=== PATIENT | male | born 1960 | race Caucasian/White ===

== ENCOUNTER 2019-03-07 10:33 | Emergency (ER) | payer OTHER, SELFPAY ==
--- NOTE | 2019-03-07 10:35 | W.ED.GENAD ---
Discharge Plan Disposition Patient Disposition: HOME Condition: Fair Discharge Details Chief Complaint: Orthopedic Clinical Impression: Multiple closed fractures of finger, Numbness and tingling in left hand Primary Care Provider: Elieser Bush ED Provider: Mckenzie Quinonez Home Meds and New Rx's Prescriptions: New hydrocodone-acetaminophen [Vicodin] 5-300 mg tablet 1 tab PO Q6H PRN (Reason: pain) Qty: 10 RF: 0 Continued citalopram [Celexa] 20 MG tablet 20 mg PO DAILY Qty: 90 RF: 4 nicotine (polacrilex) [Nicorette] 2 MG gum 2 mg PO Q2H PRN Qty: 100 RF: 6 sildenafil [Viagra] 100 MG tablet 50 mg PO PRN Qty: 3 RF: 12 tamsulosin [Flomax] 0.4 MG capsule 0.8 mg PO HS Qty: 180 RF: 3 lisinopril-hydrochlorothiazide 20-12.5 mg tablet 1 tab PO DAILY Qty: 90 RF: 3 prednisone 10 MG tablet 10 mg PO DAILY Qty: 42 RF: 0 hydroxyzine HCl 25 MG tablet 25 mg PO HS Qty: 10 RF: 0 betamethasone valerate 45 GM cream 45 gm Topical BID Qty: 1 RF: 0 No Action amlodipine 5 mg tablet 5 mg PO DAILY Qty: 90 RF: 4 Discharge Instructions Instructions: Hand Fracture (ED) Additional Instructions: Encourage rest, ice, elevation. Tylenol and/or Motrin as needed for discomfort. May use the Vicodin as prescribed but please only take as prescribed. Take care to not exceed 3,000mg of Tylenol daily as this is in the Vicodin. You may not drive while taking this medication. Keep splint on until evaluated by orthopedics. Orthopedics would like to follow-up with you on Sunday, please call the office at 8:00 Sunday morning to schedule appointment. If you are unable to be evaluated by them, please return emergency department. If you develop increased pain, fever/chills or other new/worsening symptoms please seek care urgently once again. Referrals: Jaswant Rosen MD [ [facility] STAFF PHYSICIAN] - Discharge Data Discharge Date/Time-TO BE ENTERED AT DEPARTURE: 03/07/19 13:20 Medical Decision Making Patient is a 58-year-old [id number] male presents today with chief complaint of left hand pain. Patient reports yesterday, while at work, the piece of steel fell on his left hand crushing it. Suffered injuries primarily to the middle, ring and small finger. Was seen at [facility] at which time he was diagnosed with multiple fractures. He describes reductions of these fractures. He is currently splinted. Has been elevating and icing. States that the ring finger had been cool and they advised that he return to the emergency department if this did not improve overnight. On today's exam, patient does have good capillary refill of the concerning digit. Two-point is intact except for on the ulnar side of the ring finger where he has no sensation reported. He does have diffuse swelling, worse along the ulnar side. Swelling is circumferential at the base and middle of the third, fourth and fifth digits. This patient reports that he had multiple reductions yesterday, range of motion was not assessed. Plan for imaging. Patient does wish to follow-up with orthopedics here as he lives locally. X-ray reviewed by radiologist. Patient has a 5 nondisplaced fractures. This includes the proximal phalanx of the third, fourth and fifth digits, fifth metacarpal, middle phalanx of the middle finger. Consulted with Dr. Rosen regarding the cool digit, he will come to evaluate the patient. Dr. Rosen evaluated the patient. Advised that the sandwich like a boxer splint was appropriate for the patient. He does not feel that he needs immediate intervention and will closely monitor the patient. However, he did recommend that I follow-up with hand once again at [facility] however the patient was seen yesterday. Spoke with the orthopedic physician who was on-call, this the same physician that evaluated the patient yesterday. He reports that overall this sounds to be improving from yesterday. Yesterday, the patient was insensate on both sides of the digit. He did recommend trying to achieve plaque on this and a Doppler of the finger. Feels that he is appropriate to be followed up here emergently as he is improving. I was able to obtain a plaque on his finger, something that they were reported to not be able to do yesterday. This again indicates that the patient's trauma is improving. I attempted to obtain Doppler. However, this was difficult secondary to the swelling and the numerous fractures. Was having difficulty getting the probe into the lateral aspect of the fingers. I was able to get Doppler along the radial side along the proximal phalanx but otherwise, exam was limited secondary to pain and instability of fractures. Discussed recommendations with the patient. Encourage rest, ice, elevation. He will continue with Tylenol and ibuprofen as needed for discomfort. He is requesting something stronger for pain, particularly for nighttime. He reports that he is done well with Vicodin historically. Discussed tylenol dosing. Discussed safe usage of narcotics. He was given strict return precautions. Capillary refill intact after application of splint. He is comfortable in this. All of his questions and concern were addressed, he is in agreement iwth this plan. Will f/u with orthopedics on Sunday. HPI General Mode of arrival: ambulatory. Date/Time Provider Initiated Documentation: 03/07/19 10:33. Limitations to Documentation: no limitations. Information obtained by: patient and RN notes reviewed. History of Present Illness 58 year old M presents to the emergency department with the chief complaint of crush injury to left hand, described as severe, Quality is described as aching, and is localized to the left and upper extremity. Patient reports no radiation. Patient started experiencing this day(s) (1) and it has been constant. No relieving factors improve symptom(s), No exacerbating factors reported . Patient notes no other symptoms.. Patient did receive the following treatments prior to arrival, NSAID and splint Related Data Home Medications Medication Instructions Recorded Confirmed citalopram [Celexa] 20 mg PO DAILY #90 tab-cap 07/27/15 nicotine (polacrilex) [Nicorette] 2 mg PO Q2H PRN #100 piece of gum 01/05/16 sildenafil [Viagra] 50 mg PO PRN #3 tab 03/27/17 tamsulosin [Flomax] 0.8 mg PO HS #180 tab-cap 06/13/17 betamethasone valerate 45 gm TOPICAL BID #1 tube 09/15/17 hydroxyzine HCl 25 mg PO HS #10 tab 09/15/17 prednisone 10 mg PO DAILY #42 tablet 09/15/17 lisinopril 20 1 tab PO DAILY #90 tab-cap 02/28/19 mg-hydrochlorothiazide 12.5 mg tablet hydrocodone-acetaminophen [Vicodin] 1 tab PO Q6H PRN #10 tab 03/07/19 amlodipine 5 mg tablet 5 mg PO DAILY #90 tab-cap 03/08/19 Previous Rx's Medication Instructions Recorded sildenafil [Viagra] 50 mg PO PRN #3 tab 03/27/17 tamsulosin [Flomax] 0.8 mg PO HS #180 tab-cap 06/13/17 betamethasone valerate 45 gm TOPICAL BID #1 tube 09/15/17 hydroxyzine HCl 25 mg PO HS #10 tab 09/15/17 prednisone 10 mg PO DAILY #42 tablet 09/15/17 lisinopril 20 1 tab PO DAILY #90 tab-cap 02/28/19 mg-hydrochlorothiazide 12.5 mg tablet hydrocodone-acetaminophen [Vicodin] 1 tab PO Q6H PRN #10 tab 03/07/19 amlodipine 5 mg tablet 5 mg PO DAILY #90 tab-cap 03/08/19 Allergies Allergy/AdvReac Type Severity Reaction Status Date / Time No Known Allergies Allergy Unverified 09/15/17 09:04 Review of Systems Constitutional Reports as per HPI, Denies chills, Denies fever(s), Denies headache(s) and Denies weakness ENT Denies headache(s) Cardiovascular Reports as per HPI Respiratory Reports as per HPI and Denies cough Musculoskeletal Reports as per HPI, Reports numbness (primarily to ring finger) and Reports tingling Integumentary/Breasts Reports as per HPI, Reports skin swelling, Denies wounds and Reports other (ecchymosis to middling, ring and small left digits, worse proximally) Neurologic Reports as per HPI, Denies headache(s), Reports numbness (primarily to ring finger), Reports tingling and Denies weakness [facility] Surgical History KNEE REPAIR Social History Smoking/Tobacco Use Status: Never Alcohol Intake: current Alcohol Intake frequency: holidays/special occasions only Drug use: Never Substance use type: does not use Do you feel safe in your relationship?: Yes Exam Const General: cooperative, healthy appearing, comfortable, no acute distress, well developed and well groomed Nutritional Appearance: average body habitus and well nourished Orientation: alert and awake Resp Effort & Inspection: normal respiratory effort, able to speak in complete sentences and no respiratory distress Cardio Rate: regular rate Rhythm: regular rhythm Skin General skin exam: ecchymosis (circumfrencially to middle and ring left fingers) Neuro General: alert and awake Cognition: normal cognition Speech: speech normal Gait: normal gait Motor: muscle tone normal throughout Sensory Exam: abnormal double simultaneous stimulation (normal except for ulnar side of ring finger, no sensation here) Extrem Left upper extremity: normal capillary refill, cyanosis (ring finger cool to touch, appears more ecchymotic than cyanotic) and hand Details: abnormal to inspection (dorsal swelling, maximal along the ulnar half of the dorsal aspect of hand), normal capillary refill (despite ring finger being cool, normal cap refill), neurosensory exam abnormal (patient has no sensation with 2 point along ulnar side ring finger), tenderness Location: of the dorsal hand, of the 3rd digit, of the 4th digit and of the 5th digit, vascular exam and swelling Location: of the dorsal hand, of the palm, of the 3rd digit, of the 4th digit and of the 5th digit; ROM of fingers abnormal (patient unable to move digits at thsi time); abnormal to inspection and ROM limited Psych Appearance: grossly normal and well kempt Mental Status: mental status grossly normal Speech and Movement: speech and movement normal Procedures Orthopedic Splinting/Casting Injury #1: Side: left Upper Extremity Injury Location: wrist, hand and finger Upper Extremity Immobilizer: ulnar gutter (anterior/posterior to include fingers, wrist, forearm) Additional Comments: neurovascularly intact after application
[2019-03-07 10:38] VITALS: BP 170/66; PULSE 74; RESP 20; TEMP 36.5; O2SAT 97
--- NOTE | 2019-03-07 10:46 | DI.RAD_ITS ---
SYMPTOM/DIAGNOSIS: CRUSH INJURY, PAIN LEFT HAND: Three views. No priors. There are nondisplaced comminuted fractures involving the proximal phalanges of the middle, ring and little fingers. There is also a nondisplaced fracture involving the distal metaphysis of the left fifth metacarpal. There also is a comminuted intra-articular fracture involving the middle phalanx of the left middle finger. There is soft tissue swelling of the entire hand noted. No radiopaque foreign bodies are present. IMPRESSION: Fractures involving the left fifth metacarpal, the proximal phalanges of the middle, ring and little fingers and the middle phalanx of the left middle finger. The fractures appear nondisplaced. The findings were discussed with Mckenzie Quinonez of the ER on the date of the examination.
[2019-03-07] MEDS: Acetaminophen 325 MG TAB 650 MG PO (11:00)
--- NOTE | 2019-03-11 06:13 | W.ORTHOCONSU ---
Date of service: 03/07/19 Time of Service: 13:13 History of Present Illness Chief Complaint: Right hand crush injury Narrative: Antwan is a 58-year-old who suffered a crush injury yesterday, March 06, while at work. A large metal pipe landed directly onto his right hand. He was seen initially at the [facility]. He reports that some reduction was performed although is unclear what was done. He had fractures noted of the fifth metacarpal and index middle and ring fingers. He had substantial swelling. He was placed into a splint. He presents today to the emergency room because he feels that the ring finger primarily, and the middle finger to a lesser extent, or cooler than they were. He has had numbness of the ring finger all along with some dysesthesias of the middle finger. This has not changed drastically. He has been keeping it elevated. His pain has been controlled. Consults Consult date: 03/07/19 Requesting physician: Mckenzie Quinonez Assessment and Plan (1) Crushing injury of left hand and finger: Current visit: No Status: Acute Antwan is a 58-year-old suffered a crushing injury to his left hand while at work. A large metal device landed on the hand causing fractures of 4 different digits, 5 bones. He does have a concerning exam for some decreased blood flow into the ring finger. However, there is blood flow. Also, given the duration of time since the injury would be unlikely that there was no blood flow without signs of necrosis, which there are not. The numbness is likely due to the crush injury but without a penetrating trauma this needs no exploration. Therefore, I have placed him into a well-padded splint. We will see him in close follow-up. Qualifiers: Encounter type: subsequent encounter Qualified Code(s): S67.22XD - Crushing injury of left hand, subsequent encounter Review of Systems Review of Systems All systems reviewed & are unremarkable except as noted in HPI and below PFSH Medical History Hypertension (Chronic) Surgical History KNEE REPAIR left knee reconstruction Social History Smoking/Tobacco Use Status: Never Alcohol Intake: current Alcohol Intake frequency: holidays/special occasions only Drug use: Never Substance use type: does not use Do you feel safe in your relationship?: Yes Exam Narrative Exam Narrative: Evaluation of the left hand shows significant swelling. The fingers are all swollen, less over the thumb. The palm is soft and compressible. All digits appear to be well perfused. The ring finger is more red than the other digits and cap refill is about 5 seconds compared to the other. Motion was not tested. Decreased sensation over the ring finger and middle finger. This is most dense over the ring finger. Results Last Vital Signs Temp 36.5 C 03/07/19 10:38 Pulse 74 03/07/19 10:38 Resp 20 03/07/19 10:38 BP 170/66 H 03/07/19 10:38 Pulse Ox 97 03/07/19 10:38
== END 2019-03-07 13:20 | disposition home or self-care (01) ==
PROVIDERS: Emergency Provider Physician Assistant; PCP Emergency Medicine
DX: S67.22XA Crushing injury of left hand, initial encounter (principal); S62.613A Displaced fracture of proximal phalanx of left middle finger, initial encounter for closed fracture; S62.615A Displaced fracture of proximal phalanx of left ring finger, initial encounter for closed fracture; S62.617A Displaced fracture of proximal phalanx of left little finger, initial encounter for closed fracture; S62.623A Displaced fracture of middle phalanx of left middle finger, initial encounter for closed fracture; S62.397A Other fracture of fifth metacarpal bone, left hand, initial encounter for closed fracture; R20.2 Paresthesia of skin; W22.8XXA Striking against or struck by other objects, initial encounter
CPT/HCPCS: 26600; 26720; 99253; 73130; L3650

== ENCOUNTER 2019-03-10 11:59 | Outpatient (CLI) | payer OTHER, SELFPAY ==
--- NOTE | 2019-03-10 11:49 | DI.RAD_ITS ---
SYMPTOM/DIAGNOSIS: MULTIPLE FINGER FRACTURES LEFT HAND: Comparison is made with 07 March 2019. There has been no change in the alignment of the previously noted fractures the 5th metacarpal, 3rd through 5th proximal phalanges and fracture of the middle phalanx of the 3rd finger.
== END 2019-03-10 12:19 ==
PROVIDERS: PCP Emergency Medicine; Visit Provider Student in an Organized Health Care Education/Training Program
DX: S62.337D Displaced fracture of neck of fifth metacarpal bone, left hand, subsequent encounter for fracture with routine healing (principal); S62.641D Nondisplaced fracture of proximal phalanx of left index finger, subsequent encounter for fracture with routine healing; S62.643D Nondisplaced fracture of proximal phalanx of left middle finger, subsequent encounter for fracture with routine healing; S62.653D Nondisplaced fracture of middle phalanx of left middle finger, subsequent encounter for fracture with routine healing
CPT/HCPCS: 73130

== ENCOUNTER 2019-03-28 11:15 | Day surgery (SDC) | payer OTHER, SELFPAY ==
[2019-03-28 11:28] VITALS: BP 152/76; PULSE 71; RESP 18; TEMP 37; O2SAT 97
[2019-03-28] MEDS: Lactated Ringers 1,000 ML 80 ML IV (12:08)
[2019-03-28] MEDS: ceFAZolin 2 GM/50 ML BAG IVPB (12:25)
[2019-03-28] MEDS: Sodium Bicarbonate 50 MEQ/50 ML VIAL (12:35)
--- NOTE | 2019-03-28 14:02 | PDOC.DSDIS_ITS ---
Discharge Plan Disposition Patient Disposition: HOME Condition: Good Discharge Details Reason For Visit: LRF Flexor Tendon Rupture Attending Provider: Jaswant oRsen Primary Care Provider: Elieser Bush Home Meds and New Rx's Prescriptions: Continued lisinopril-hydrochlorothiazide 20-12.5 mg tablet 1 tab PO DAILY Qty: 90 RF: 3 amlodipine 5 mg tablet 5 mg PO DAILY Qty: 90 RF: 4 hydrocodone-acetaminophen [Vicodin] 5-300 mg tablet 1 tab PO Q6H PRN (Reason: pain) Qty: 5 RF: 0 Discharge Instructions Additional Instructions: Activity: You should keep the hand elevated as much as possible for the first few days. No active flexion of the ring finger. You may perform light activities with the splint in place. Keep splint on. Dressing/Cast: Your splint should stay in place at all times. Do NOT get it wet. You may loosen the GUANAKO wrap if you feel it is too tight and then rewrap more loosely. Medications: - You should take Tylenol and Ibuprofen for baseline pain control. - You have Hydrocodone for breakthrough pain. - You may apply ice Follow-up: 7 days, Sunday Referrals: Jaswant Rosen MD [ [facility] STAFF PHYSICIAN] - Equipment/Supplies: Splint Activity:: Elevate Remove Dressings/Wound Care:: Do Not Remove Shower/Bathe:: Cover Diet:: As Tolerated Discharge Orders Discharge Orders: Discharge Order (Routine); Ordered 03/28/19 Ordered By: Jaswant Rosen DS: Diagnosis Discharge Diagnosis (1) Crushing injury of left hand and finger: Status: Acute (2) Rupture of flexor tendon of left hand: Status: Acute
--- NOTE | 2019-03-28 16:48 | ROE_ITS ---
DATE OF SURGERY: March 28, 2019 PREOPERATIVE DIAGNOSIS: Multiple hand fractures and rupture of left ringer finger FDP tendon. POSTOPERATIVE DIAGNOSIS: Same. SURGERY: Zone 2 flexor tendon repair of the left ring finger flexor digitorum profundus tendon. SURGEON: Jaswant Rosen M.D. ASSISTING SURGEON: Marvin Goldman M.D. ESTIMATED BLOOD LOSS: Minimal. ANESTHESIA: Local. COMPLICATIONS: None. DISPOSITION: The patient was taken back to the same-day surgery in a stable condition. INDICATION FOR PROCEDURE: Choco is a 58-year-old who had a large metal piece of machinery land on his left hand. He was seen initially at [place]. He was diagnosed with multiple hand fractures, including the proximal phalanx of the little finger, proximal phalanx of the ring finger, proximal an d middle phalanges of the long finger, and the fifth metacarpal neck. He was placed into a splint. I saw him in consultation over a week out from the injury, where there was noted to be some resting e xtension of the ring finger DIP joint. This prompted an MRI which revealed complete rupture of the F DP tendon. Given this injury, I did recommend urgent repair of the flexor tendon. The case was disc ussed with hand specialists, who were unavailable to help with the case, so therefore I offered fixat ion here at [facility]. I reviewed the risks of the procedure to include bleeding, infection, pain, stiffn ess, damage to nerves and vessels, damage to muscles and tendons, re-rupture, adhesion formation, nee d for repeat procedures. Despite these risks, he elected to proceed. PROCEDURE DESCRIPTION: Antwan was greeted in the preoperative holding area. His identity was confirme d and the correct side was identified and marked. He was taken back to the operating room and placed in the supine position. The splint from the left hand was removed. A time-out was performed for sa fe surgery. The left palm was first prepped with ChloraPrep and prior to doing the final draping an initial anesthetic was applied to the left hand. Approximately 10 cc's of buffered 1% Lidocaine with epinephrine was injected into the palm just distal to the transverse carpal ligament surrounding the fourth ray. This was done superficially and then deeper to try to cover the digital nerves. While this was setting up, I then performed preoperative x-rays. Each digit which had fractures was identi fied. Some passive motion was obtained to make sure that the fractures were stable and without any g ross motion. The base of the proximal phalanx of the little finger did have some angulation, but the joint was otherwise congruent. All other fractures were manipulated and showed no gross motion and therefore no fracture fixation was performed. The left hand was then prepped with ChloraPrep and draped in a standard fashion. Approximately 5 cc' s of the buffered 1% Lidocaine with epinephrine was injected into the ring finger centrally. A Lara-type incision was then made overlying the finger starting at the level of the DIP flexion cr ease and extending down to the MCP flexion crease and onto the palm. This was taken sharply through the skin and then elevated with tenotomy scissors. The skin flaps were tied out of the way with a #4 -0 Nylon. We had excellent visualization of the flexor tendon sheath. The A-2 birgit was identified . The distal stump of the flexor tendon was seen just distal to the proximal edge of the A-2 birgit. The sheath was opened and the chiasm was empty. The A-1 birgit was released and at the very proxim al edge of the A-1 birgit the proximal stump was identified. A small epitendinous suture was placed in the distal tendon stump for mobilization. A similar type stitch was placed in the proximal stump for mobilization and this showed that the level of the tear was right at the base of the A-2 birgit. It was then decided to remove one slip of the FDS tendon. The ulnar slip was removed. This allowed room for the FDP tendon and also made orientation easier. The tendon edges were then freshened. The tear was somewhat irregular and I did not want to remove t oo much tendon, so therefore just the very blunt roughened edges were removed. An epitendinous sutur e was placed between the two ends to reapproximate the ends. The tendons were held in a reduced posi tion with a 25 gauge needle through the pulleys and into the tendon. This #6-0 Nylon suture was plac ed deep over the back side of the tendon. Two throws were made in this location. This then had the tendon edges nicely approximated. Using a #3-0 Ethibond suture I then repaired the tendon with a fou r core suture technique using a locking cruciate-style suture. This was done with excellent approxim ation of the tendon edges. It was tied within the avulsed section and the knot was buried. The epit endinous suture was continued in a running fashion around the entirety of the torn tendon. This smoo thed the tendon edge. There was still some bulk in this area. The patient was able to actively flex the digit which showed no tendon gapping. This was repeated mu ltiple times to ensure there was no gapping of the tendon. With the finger maximally extended with t he wrist in an extended position, the repair site impinged on the proximal edge of the A-2 birgit. T herefore I released approximately 3 mm of the A-2 birgit, representing less than 20% of the A-2 pulle y. This allowed the repair site to advance into a fully extended position. The wound was then thoro ughly irrigated. Any excess tendon which was present was debulked. The skin was then closed and freddie pproximated with a #4-0 Nylon. The wound was dressed with Xeroform, 4x4's, fluff, Webril, and a dors al-blocking splint. At the end of the case all counts were correct. He tolerated the procedure wel l and went back to the same-day surgery area in a stable condition. Dr. Goldman's involvement was necessary given the complexity of this case in the setting of a ruptured flexor tendon in a delayed fashion with multiple surrounding fractures.
== END 2019-03-28 14:40 | disposition home or self-care (01) ==
PROVIDERS: PCP Emergency Medicine; Visit Provider Student in an Organized Health Care Education/Training Program
PROC: (CPT 26370; principal; 2019-03-28 12:30)
DX: S67.22XA Crushing injury of left hand, initial encounter (principal); S66.115A Strain of flexor muscle, fascia and tendon of left ring finger at wrist and hand level, initial encounter; W31.9XXA Contact with unspecified machinery, initial encounter; Y99.0 Civilian activity done for income or pay; S62.617A Displaced fracture of proximal phalanx of left little finger, initial encounter for closed fracture; S62.615A Displaced fracture of proximal phalanx of left ring finger, initial encounter for closed fracture; S62.613A Displaced fracture of proximal phalanx of left middle finger, initial encounter for closed fracture; S62.623A Displaced fracture of middle phalanx of left middle finger, initial encounter for closed fracture; S62.337A Displaced fracture of neck of fifth metacarpal bone, left hand, initial encounter for closed fracture
CPT/HCPCS: 26370; J0690

== ENCOUNTER 2019-04-04 11:50 | Outpatient (CLI) | payer OTHER, SELFPAY ==
--- NOTE | 2019-04-04 10:39 | DI.RAD_ITS ---
EXAM: XR HAND LT LIMITED INDICATION: left hand injury involving several fractures. COMPARISON: XR hand LT complete from 03/10/2019 TECHNIQUE: 2D digital imaging was performed. FINDINGS: There are nondisplaced transverse fractures involving the proximal metaphysis of the proximal phalanx of the little and ring finger. In addition there is an apparent nondisplaced fracture involving the shaft and distal metaphysis of the phalanx of the middle finger. In addition there is a mildly displa eladia comminuted fracture involving the diaphysis and the proximal diaphysis of the proximal phalanx of the 5th finger and a mildly displaced fracture involving the distal metaphysis of the fifth finger. There is no evidence of a dislocation. There is prominent soft tissue swelling of the distal hand an d ring and fifth fingers.
== END 2019-04-04 12:10 ==
PROVIDERS: PCP Emergency Medicine; Visit Provider Physician Assistant
DX: S67.22XD Crushing injury of left hand, subsequent encounter (principal); S62.645D Nondisplaced fracture of proximal phalanx of left ring finger, subsequent encounter for fracture with routine healing; S62.617D Displaced fracture of proximal phalanx of left little finger, subsequent encounter for fracture with routine healing; S62.643D Nondisplaced fracture of proximal phalanx of left middle finger, subsequent encounter for fracture with routine healing
CPT/HCPCS: 73120

== ENCOUNTER 2019-04-28 11:52 | Outpatient (CLI) | payer OTHER, SELFPAY ==
--- NOTE | 2019-04-28 09:13 | DI.RAD_ITS ---
EXAM: XR HAND LT COMPLETE INDICATION: Left hand crush injury, multiple fractures. COMPARISON: XR HAND LT LIMITED from 04/04/2019 TECHNIQUE: 2D digital imaging was performed. FINDINGS: Three views were obtained and show healing fractures 5th metacarpal as well as phalanges of the middl e ring and little fingers. No gross interval change in alignment of the fracture fragments in compar parker with the previous examination of April 04. IMPRESSION:
== END 2019-04-28 12:12 ==
PROVIDERS: PCP Emergency Medicine; Visit Provider Student in an Organized Health Care Education/Training Program
DX: S67.22XD Crushing injury of left hand, subsequent encounter (principal); S62.641D Nondisplaced fracture of proximal phalanx of left index finger, subsequent encounter for fracture with routine healing; S62.617D Displaced fracture of proximal phalanx of left little finger, subsequent encounter for fracture with routine healing; S62.643D Nondisplaced fracture of proximal phalanx of left middle finger, subsequent encounter for fracture with routine healing; S62.337D Displaced fracture of neck of fifth metacarpal bone, left hand, subsequent encounter for fracture with routine healing
CPT/HCPCS: 73130

== ENCOUNTER 2019-11-03 11:40 | Outpatient (CLI) | payer OTHER, SELFPAY ==
--- NOTE | 2019-11-03 13:00 | DI.RAD_ITS ---
EXAM: XR CHEST 2V PA LATERAL CLINICAL HISTORY: Chronic SOB, cough, r05 TECHNIQUE: 2D digital imaging was performed. COMPARISON: RIGHT RIBS TO INCLUDE CXR from 10/19/2010 FINDINGS: The cardiac and mediastinal contours have a normal appearance. The lungs are mildly hyperinflated particularly at the lung bases. The lungs appear clear. No infiltrate, effusion or pulmonary edema is seen. IMPRESSION: Hyperinflation, otherwise negative.
== END 2019-11-03 12:00 ==
PROVIDERS: PCP Emergency Medicine; Visit Provider Nurse Practitioner Family
DX: R06.02 Shortness of breath (principal); R05 Cough
CPT/HCPCS: 71046

== ENCOUNTER 2020-04-21 09:50 | Outpatient (REF) | payer MEDICARE, SELFPAY ==
[2020-04-21 13:09] LABS: Anion Gap 6.8 mmol/L (3-11); BUN 15 mg/dL (7-18); CO2 26.2 mmol/L (21.0-32.0); CREATININE 0.92 mg/dL (0.70-1.30); Calcium 9.8 mg/dL (8.5-10.1); Chloride 92 mmol/L (98-107); Glucose 100 mg/dL (74-106); Potassium 5.2 mmol/L (3.5-5.1); Sodium 125 mmol/L (136-145)
[2020-04-22 09:41] LABS: PSA, Screening 0.7 ng/mL (0.0-4.5)
== END 2020-04-21 10:10 ==
LOC: LBN 09:50
PROVIDERS: PCP Emergency Medicine; Visit Provider Emergency Medicine
DX: I10 Essential (primary) hypertension (principal); Z12.5 Encounter for screening for malignant neoplasm of prostate
CPT/HCPCS: 80048; 84153

== ENCOUNTER 2020-04-29 02:44 | Outpatient (CLI) | payer MEDICARE, SELFPAY ==
[2020-04-29 10:59] LABS: Anion Gap 7.8 mmol/L (3-11); BUN 15 mg/dL (7-18); CO2 28.2 mmol/L (21.0-32.0); CREATININE 0.87 mg/dL (0.70-1.30); Calcium 9.3 mg/dL (8.5-10.1); Chloride 98 mmol/L (98-107); Glucose 93 mg/dL (74-106); Potassium 4.9 mmol/L (3.5-5.1); Sodium 134 mmol/L (136-145)
== END 2020-04-29 03:04 ==
PROVIDERS: PCP Emergency Medicine; Visit Provider Emergency Medicine
DX: I10 Essential (primary) hypertension (principal); E78.1 Pure hyperglyceridemia
CPT/HCPCS: 36415; 80048

== ENCOUNTER → 2020-06-17 09:30 | Outpatient (BNVA) | payer MEDICARE, SELFPAY | PROVIDERS: PCP Emergency Medicine; Referring Provider Emergency Medicine; Visit Provider Physical Therapy Assistant | DX: Z12.11 Encounter for screening for malignant neoplasm of colon (principal) ==

== ENCOUNTER 2020-06-28 03:05 | Outpatient (CLI) | payer MEDICARE, SELFPAY ==
[2020-06-29 21:00] LABS: COVID-19 RT-PCR UVMMC Result Negative (Negative)
== END 2020-06-28 03:25 ==
PROVIDERS: PCP Emergency Medicine; Visit Provider Surgery
DX: Z11.59 Encounter for screening for other viral diseases (principal); Z01.818 Encounter for other preprocedural examination
CPT/HCPCS: U0003

== ENCOUNTER 2020-07-01 08:55 | Day surgery (SDC) | payer MEDICARE, SELFPAY ==
[2020-07-01 09:10] VITALS: BP 155/74; PULSE 68; RESP 18; TEMP 36.9; O2SAT 96
[2020-07-01] MEDS: Lactated Ringers 1,000 ML 80 ML IV (09:38)
--- NOTE | 2020-07-01 11:29 | W.PM.DSUDISC ---
Discharge Plan Disposition Patient Disposition: HOME Condition: Good Discharge Details Reason For Visit: colon scope Attending Provider: Alessandra Francois Primary Care Provider: Elieser Bush Home Meds and New Rx's Prescriptions: Continued (DME) Aerochamber MV Spacer See Rx Instructions .ROUTE .MEDSUPPLY Qty: 1 RF: 0 albuterol sulfate 90 mcg/actuation HFA aerosol inhaler 2 puff inhalation Q6H PRNRF: 0 amlodipine 5 mg tablet 5 mg PO DAILY Qty: 90 RF: 4 lisinopril 20 mg tablet 20 mg PO DAILY Qty: 90 RF: 3 Discontinued polyethylene glycol 3350 17 gram/dose powder 238 g PO ONCE Qty: 238 RF: 0 bisacodyl [Dulcolax (bisacodyl)] 5 mg tablet,delayed release (DR/EC) 5 mg PO ONCE Qty: 4 RF: 0 Discharge Instructions Additional Instructions: Findings: Follow up: Please call if you develop: fevers >101.5 Nausea or Vomiting Abdominal pain that is not transient DAY SURGERY UNIT POST COLONOSCOPY INSTRUCTIONS 1. Because there will be medication in your system for the next 24 hours, you may feel a little sleepy. Your coordination will be affected. Therefore: a. Do not drive or operate dangerous equipment for 24 hours. b. Do not drink alcohol beverages for 24 hours (not even beer). c. Plan to go home and rest for the day. 2. Generally there are no restrictions on your activity after a day or so has gone by, but you may feel a bit fatigued for a few days. 3 After you arrive home you may have a light meal and return to a normal diet as you can tolerate it without feeling sick to your stomach. 4. After surgery, you may feel pain or discomfort. This should be only transient, but if it persists please contact your doctor. 5. If there are any questions regarding the findings of your procedure, please feel free to contact your doctor. 6. If you are unable to contact your doctor with a problem, contact the hospital at [phone]. 7. Continue all your regular medications unless directed otherwise. I understand the above instructions and have no questions. Signature of Patient or Responsible Adult Escort Date/Time Name of Responsible Adult Escort Signature of Nurse Date/Time Activity:: No lifting over 20 pounds or strenuous activity x24 hours Diet:: Small light meals x24 hours Discharge Orders Discharge Orders: Discharge Order (Routine); Ordered 07/01/20 Ordered By: Alessandra Francois DS: Diagnosis Discharge Diagnosis (1) Colon cancer screening: Status: Acute
--- NOTE | 2020-07-01 11:31 | W.COLOREPORT ---
Date of service: 07/01/20 Time of Service: 11:32 Colonoscopy Report Date of procedure: 07/01/20 Pre-op diagnosis general: crc scree Post-op diagnosis procedure note: same Surgeon: Alessandra Francois Anesthesia proc note operative: GETA Estimated blood loss (mL): 0 Pathology: none sent Complications: None Disposition: same day Prep: Miralax/Dulcolax Retraction Time: 10 Procedure Description: Findings:normal colon After informed consent was obtained the patient was taken to the procedure room and placed in a left decubitous position. Monitors were applied and a time out was done. The patients name, date of , procedure, allergies to medications and metal in their body was reviewed. The patient was then sedated. Once sedated and comfortable a rectal exam was done. External exam was normal. Internal exam revealed a normal sphincter tone and no palpable masses. The scope was then introduced and retrofelexed. no internal hemorrhoids were identified. The scope was then advanced to the cecum w/out difficulty. The TI and appendiceal orifice were identified. The prep wasgood. The scope was then slowly retracted over 10 minutes back into the rectum. no polyps/avm/diverticula. the mucosa is pink and healthy. The scope was removed and the patient was woken up and taken back to Same day surgery in stable condition. The patient tolerated the procedure well and there were no immediate complications. Follow up: The patient should follow up in [] years unless they develop changes in bowel habits or other new gastrointestinal complaints.
[2020-07-01 11:55] VITALS: BP 130/77; PULSE 63; RESP 18; TEMP 36.7; O2SAT 95
== END 2020-07-01 12:24 | disposition home or self-care (01) ==
PROVIDERS: PCP Emergency Medicine; Visit Provider Surgery
PROC: 0DJD8ZZ Inspection of Lower Intestinal Tract, Via Natural or Artificial Opening Endoscopic (ICD-10-PCS; CPT 45378; principal; 2020-07-01 10:15)
DX: Z12.11 Encounter for screening for malignant neoplasm of colon (principal)
CPT/HCPCS: G0121

== ENCOUNTER 2020-12-24 09:25 | Outpatient (REF) | payer SELFPAY ==
[2020-12-24 14:42] LABS: Anion Gap 7.3 mmol/L (3-11); BUN 14 mg/dL (7-18); CO2 25.7 mmol/L (21.0-32.0); CREATININE 0.8 mg/dL (0.70-1.30); Calcium 9.3 mg/dL (8.5-10.1); Calculated LDL 104 mg/dL (<100); Chloride 99 mmol/L (98-107); Cholesterol 191 mg/dL (<200); Glucose 124 mg/dL (74-106); HDL Cholesterol 45 mg/dL (40-60); Sodium 132 mmol/L (136-145); Triglyceride 214 mg/dL (<150)
== END 2020-12-24 09:26 | disposition home or self-care (01) ==
LOC: LBN 09:25
PROVIDERS: PCP Emergency Medicine; Visit Provider Emergency Medicine
DX: I10 Essential (primary) hypertension (principal)
CPT/HCPCS: 80048; 80061

== ENCOUNTER 2021-01-09 12:17 | Emergency (ER) | payer SELFPAY ==
--- NOTE | 2021-01-09 12:21 | ED.GENADUL_ITS ---
Discharge Plan Disposition Patient Disposition: HOME Condition: Stable Discharge Details Clinical Impression: Tick bite, Rash Primary Care Provider: Elieser Bush ED Provider: Eva Villegas Home Meds and New Rx's Prescriptions: New doxycycline hyclate 100 mg tablet 100 mg PO BID 14 Days Qty: 28 RF: 0 Continued (DME) Aerochamber MV Spacer See Rx Instructions .ROUTE .MEDSUPPLY Qty: 1 RF: 0 budesonide-formoterol [Symbicort] 160-4.5 mcg/actuation HFA aerosol inhaler 2 puff inhalation BID Qty: 10.2 RF: 6 albuterol sulfate 90 mcg/actuation HFA aerosol inhaler 2 puff inhalation Q6H PRNRF: 0 amlodipine 5 mg tablet 5 mg PO DAILY Qty: 90 RF: 4 lisinopril 20 mg tablet 20 mg PO DAILY Qty: 90 RF: 3 Discharge Instructions Instructions: Lyme Disease (ED), Tick Bite (ED) Additional Instructions: The redness surrounding your tick bite may be a local reaction, a superficial skin infection or an early sign of possible Lyme disease. Follow-up with your primary care doctor or call the emergency department for results of your tick and Lyme panel. You are being started on antibiotics that can cover for potential Lyme disease. Discussed with your primary care doctor how to proceed with treatment pending your tick and Lyme panel results. Keep wound clean and dry. Cover wound with bandage if risk of contamination. Otherwise you can keep the wo und open to air if resting at home to allow edges to dry and heal. Your prescription has been sent electronically to your pharmacy. Call the pharmacy to make sure your prescription is ready before pickup. Take the prescription as directed. Return to the emergency department with any worsening or new concerning symptoms such as fever, worsening pain, redness or swelling. Discharge Data Discharge Physician: Eva Villegas Medical Decision Making 60-year-old male presents with red rash around tick bite which was removed by his son this morning. He is unsure how long the tick was present but could be more than 36 hours. He states he thinks it was a dog tick and it was engorged. There is a crusted erosion at the site of tick bite with surrounding erythema and a questionable area of central clearing and a ring. This is quite faint, but considering the history, will cover with doxycycline. Tick and Lyme panel obtained here. Advised to follow-up with PCP for tick and Lyme panel results. Usual and customary return precautions given prior to discharge. Medical Records Medical records reviewed: Yes I reviewed the patient's medical records. HPI General Mode of arrival: ambulatory . Date/Time Provider Initiated Documentation: 01/09/21 12:18 . Limitations to Documentation: no limitations . Information obtained by: patient . HPI Narrative: Patient is a 60-year-old male who presents with a rash around the tick bite that was noticed this morning. Patient states he is unsure of when the tick attached to his skin but states it may have been there for a few days. He states his son removed the tick this morning and noticed redness around this area. Patient states he thinks it was a dog tick and not a deer. He states the tick was fully engorged with blood. He denies any fever, body aches or chills Related Data Home Medications Medication Instructions Recorded Confirmed inhalational spacing device #1 each 11/03/19 06/29/20 amlodipine 5 mg tablet 5 mg PO DAILY #90 tab-cap 03/03/20 07/01/20 lisinopril 20 mg tablet 20 mg PO DAILY #90 tab 04/21/20 01/09/21 albuterol sulfate 90 mcg/actuation 2 puff INHALATION Q6H PRN 06/17/20 07/01/20 aerosol inhaler budesonide-formoterol HFA 160 2 puff INHALATION BID #10.2 g 12/24/20 12/24/20 mcg-4.5 mcg/actuation aerosol inhaler doxycycline hyclate 100 mg PO BID 14 Days #28 tab 01/09/21 Previous Rx's Medication Instructions Recorded inhalational spacing device #1 each 11/03/19 amlodipine 5 mg tablet 5 mg PO DAILY #90 tab-cap 03/03/20 lisinopril 20 mg tablet 20 mg PO DAILY #90 tab 04/21/20 budesonide-formoterol HFA 160 2 puff INHALATION BID #10.2 g 12/24/20 mcg-4.5 mcg/actuation aerosol inhaler doxycycline hyclate 100 mg PO BID 14 Days #28 tab 01/09/21 Allergies Allergy/AdvReac Type Severity Reaction Status Date / Time No Known Allergies Allergy Unverified 12/24/20 08:29 General ETHEL: 3 Review of Systems All systems reviewed & are unremarkable except as noted in HPI and below Constitutional Constitutional: Reports as per HPI, Denies chills and Denies fever(s) Eyes Eyes: Denies blurry vision ENT Ears, Nose, Mouth, and Throat: Denies dizziness, Denies sore throat and Denies throat swelling Cardiovascular Cardiovascular: Denies chest pain and Denies dyspnea Respiratory Respiratory: Denies cough and Denies dyspnea Gastrointestinal Gastrointestinal: Denies abdominal pain, Denies diarrhea and Denies vomiting Genitourinary Genitourinary: Denies hematuria and Denies dysuria Musculoskeletal Musculoskeletal: Denies back pain and Denies numbness Integumentary/Breasts Skin/Breast: Reports lesions and Reports rash Neurologic Neurologic: Denies dizziness, Denies localized weakness and Denies numbness Allergic/Immunologic Allergic/Immunologic: Denies throat swelling PFS Medical History (Updated 01/09/21 @ 12:38 by Eva Villegas DO) BPH (benign prostatic hyperplasia) Colon cancer screening COPD (chronic obstructive pulmonary disease) Cough Essential hypertension Hyponatremia Loss of smell Loss of taste Traumatic brain injury Surgical History (Updated 07/30/20 @ 13:55 by Tootie Rodriguez RN) History of colonoscopy (~07/01/20) Hx of eye surgery right eye in childhood KNEE REPAIR left knee reconstruction S/P tendon repair (03/28/19) Zone 2 flexor tendon repair of the left ring finger flexor digitorum profundus tendon Social History Smoking/Tobacco Use Status: Current every day Tobacco Type: cigarettes and smokeless tobacco Tobacco: How many years used: 20 Smoking risk assessment performed?: Yes Alcohol Intake: current Alcohol Intake frequency: 3 or more drinks per day Alcohol type: beer Drug use: Never Substance use type: does not use Current gender identity: male Do you feel safe at home: Yes Do you feel safe in your relationship?: Yes Exam Const General: cooperative, healthy appearing and no acute distress HENMT Head: normal to inspection Eyes General: appearance normal, both eyes and all related structures EOM: EOM intact bilaterally Neck Neck: normal visual inspection and No submandibular swelling Lymphatic: no lymphadenopathy noted Chest Chest: normal inspection of the chest and no tenderness Resp Effort & Inspection: normal respiratory effort and able to speak in complete sentences Cardio Rate: regular rate Back/Spine/Pelvis Back/spine/pelvis image: 1. 3x3mm nontender crusted abrasion. No foreign body noted. 2. There is a 2x2cm area of surrounding blanching erythema around abrasion with a questionable area of central clearing and then a slightly more prominent erythematous ring around edge. Neuro General: patient alert, patient awake and patient oriented x3 Cognition: normal cognition Speech: speech normal Motor: muscle tone normal throughout Sensory Exam: no sensory deficits noted Extrem General: normal to inspection, full ROM, capillary refill normal, no calf tenderness bilaterally and no edema Psych Appearance: grossly normal Mental Status: mental status grossly normal Speech and Movement: speech and movement normal Affect: normal affect
[2021-01-09 12:25] VITALS: BP 184/95; PULSE 72; RESP 16; TEMP 37.6; O2SAT 97
[2021-01-09] MEDS: Doxycycline Hyclate 100 MG CAP PO (12:52)
[2021-01-11 12:42] LABS: Lyme Ab w Rflx to Lyme Confirm Positive (Negative)
[2021-01-13 08:21] LABS: Anaplasma phagocytophilum Negative (Negative); B. miyamotoi PCR Negative (Negative); Babesia divergens/MO-1 Negative (Negative); Babesia duncani Negative (Negative); Babesia microti Negative (Negative); Ehrlichia chaffeensis Negative (Negative); Ehrlichia ewingii/canis Negative (Negative); Ehrlichia muris eauclairensis Negative (Negative)
--- NOTE | 2021-01-13 09:47 | W.ED.FU ---
Lyme disease antibody positive on tick and Lyme panel from recent ED visit. Patient was given doxycycline 100 mg p.o. twice daily x14 days. Called patient on his cell phone and no answer. Left message to call the emergency department to discuss recent results from ED visit. Patient called the emergency department and he was given his results. He states he has fatigue but overall feeling better. He is taking the antibiotic as prescribed. He is advised to call his primary care doctor for reevaluation next week and to discuss whether they want to do an additional week of doxycycline or referral to infectious disease.
[2021-01-13 14:12] LABS: IgG Immunoblot Negative (Negative); IgM Immunoblot Negative (Negative)
== END 2021-01-09 12:55 | disposition home or self-care (01) ==
PROVIDERS: Emergency Provider Physician Assistant; PCP Emergency Medicine
DX: S20.469A Insect bite (nonvenomous) of unspecified back wall of thorax, initial encounter (principal); W57.XXXA Bitten or stung by nonvenomous insect and other nonvenomous arthropods, initial encounter; A69.20 Lyme disease, unspecified
CPT/HCPCS: 36415; 86617; 87798; 99283; 86618

== ENCOUNTER 2022-02-02 01:48 | Outpatient (CLI) | payer OTHER, SELFPAY ==
--- OUTSIDE RECORDS SUMMARY | 2022-02-02 00:34 | XMS_ITS | Encounter Summary ---
:1960 Author Organization [facility] [place] [address] Care Team Providers Name Role Phone Elieser Bush DO Primary Care Provider Encounter Details Date Type Department Care Team Description 08/18/2019 Orders Only Orthopaedics at [facility] [place] Praveen Gonzalez MD Left hand pain [facility] [place] [address] ORTHOPAEDIC SURGERY [phone] [place], [place] [address] (Wo rk) Social History Tobacco Use Types Packs/Day Years Used Date Current Some Day Smoker Smokeless Tobacco: Current User Chew Comments: occasional Alcohol Use Standard Drinks/Week Comments Yes 0 (1 standard drink = 0.6 oz pure alcoho l) 12-14 per week Alcohol Habits Answer Date Recorded How often do you have a drink containing alcohol? Not asked How many drinks containing alcohol do you have on a Not aske d typical day when you are drinking? How often do you have six or more drinks on one Not asked occasion? Comment: 12-14 per week 08/18/2019 Sex Assigned at Date Recorded Not on file documented as of this encounter Plan of Treatment Not on filedocumented as of this encounter Results XR Hand Min 3 views Left (Generic) (08/18/2019 10:40 AM EST) Anatomical Region Laterality Modality Hand Left Digital Radiography Specimen (Source) Anatomical Location Collection Method / Collectio n Time Received Time / Laterality Volume Impressions 08/18/2019 11:38 AM EST 1. ??Healing fractures of the middle, ring and fifth proximal phalanx, middle phalanx of middle finger and distal fift h metacarpal in unchanged alignment. 2. ??No acute osseous abnormality. I have personally reviewed the image(s) and the resident's interpretation and agree with the findings, Cony pennington 08/18/2019 11:38 AM Thank you for letting us participate in the care of this patient. For questions regarding this report, please contact e number below. ? Narrative 08/18/2019 11:38 AM EST EXAMINATION: XR HAND MIN 3 VIEWS LEFT (GENERIC) CLINICAL HISTORY: L hand pain TECHNIQUE: 3 views LEFT hand COMPARISON: MRI from 03/25/2019. Radiographs from 03/17. FINDINGS: Healing fractures involving the middle, ring and fifth proximal phalanx, middle phalanx of middle finger and distal fift h metacarpal. The fractures are all healing with mostly obliterated fracture lines with increased callus deposition. No new fracture. The joint alignments are maintained. Mil d degenerative change most notable at the DIP joints with partial joint space loss and marginal osteophyte formation. No osseous erosions. No significant soft tissue swelling. Procedure Note Cony Carpio MD - 08/18/2019Formatt ing of this note might be different from the original. EXAMINATION: XR HAND MIN 3 VIEWS LEFT (G ENERIC) CLINICAL HISTORY: L hand pain TECHNIQUE: 3 views LEFT hand COMPARISON: MRI from 03/25/2019. Radiographs from 03/17. FINDINGS: Healing fractures involving the middle, ring and fifth proximal phalanx, middle phalanx of middle finger and distal fift h metacarpal. The fractures are all healing with mostly obliterated fracture lines with increased callus deposition. No new fracture. The joint alignments are maintained. Mil d degenerative change most notable at the DIP joints with partial joint space loss and marginal osteophyte formation. No osseous erosions. No significant soft tissue swelling. IMPRESSION 1. Healing fractures of the middle, ring and fifth proximal phalanx, middle phalanx of middle finger and distal fift h metacarpal in unchanged alignment. 2. No acute osseous abnormality. I have personally reviewed the image(s) and the resident's interpretation and agree with the findings, Cony pennington 08/18/2019 11:38 AM Thank you for letting us participate in the care of this patient. For questions regarding this report, please contact e number below. Praveen Gonzalez MD IMG DX ORDERABLES documented in this encounter Visit Diagnoses Diagnosis Left hand pain Pain in limb Left hand pain Pain in limb documented in this encounter Care Teams [employer] Field Supervisor Relationship Specialty Start Date End Date Elieser Bush DO PCP - General Family Medicine 07/15/[address] [place] [address] documented as of this encounter
--- OUTSIDE RECORDS SUMMARY | 2022-02-02 00:34 | XMS_ITS | Clinical Summary ---
:1960 Author Organization [facility] [place] [address] Care Team Providers Name Role Phone EleazarElieser parra Primary Care Provider Allergies No known active allergies Medications Medication Sig Dispensed Refills Start Date End Date Status lisinopril-hydrochlorot 1 Tablet(s), PO, 0 7 Active hiazide Once daily (PRINZIDE;ZESTORETIC) 20-12.5 mg per tablet sildenafil (VIAGRA) 100 50mg, PO, PRN 0 04/14/2007 Active mg tablet phenytoin (DILANTIN) 100 MG = 1 0 04/14/2007 Active 100 mg ER capsule Capsule(s), PO, Three times daily OXYcodone (ROXICODONE) 5 MG = 1 0 05/13/2007 Active 5 mg immediate release Tablet(s), PO, tablet Q6H,PRN gabapentin (NEURONTIN) 100 MG = 1 0 08/20/2007 Active 100 mg capsule Capsule(s), PO, Three times daily amLODIPine (Norvasc) 5 0 06/19/2019 Active mg Tablet Active Problems Problem Noted Date Finger stiffness, left 08/19/2019 Immunizations Name Administration Dates Next Due Pneumococcal Polyvalent 23 02/10/2004 Family History Medical History Relation Comments Diabetes Neg Hx Social History Tobacco Use Types Packs/Day Years [...] Assigned at Date Recorded Not on file Last Filed Vital Signs Vital Sign Reading Time Taken Comments Blood Pressure 144/66 08/18/2019 9:47 AM EST Pulse 69 08/18/2019 9:47 AM EST Temperature - - Respiratory Rate - - Oxygen Saturation - - Inhaled Oxygen Concentration - - Weight 99.8 kg (220 lb) 08/18/2019 9:47 AM EST reported Height 172.7 cm (5' 8) 08/18/2019 9:47 AM EST reported Body Mass Index 33.45 08/18/2019 9:47 AM EST Plan of Treatment Health Maintenance Due Date Last Done Comments Covid-19 Vaccine (#1) 10/28/1964 HIV screen 10/28/1977 Hepatitis C Screening 10/28/1977 Lipid Screening 10/28/1977 Tdap adult 10/28/1978 Tetanus vaccine 10/28/1978 Diabetes Screening (HgbA1C or Glucose) 1999 Colonoscopy 10/28/2004 Pneumococcal Vaccine: At-Risk 5-64yrs (2 - PCV) 02/09/2005 02/10/2004 Zoster vaccine (1 of 2) 10/28/2009 Advance Directive 10/28/2014 Influenza (Flu) vaccine (1 of 1 - Influenza standard 03/16/2022 series) Insurance Payer Benefit Plan / Subscriber ID Effective Dates Phone Addre ss Type Group TRAVELERS [facility] TRAVELERS [id number] 2019-Prese [phone] [address] [place] [address] Choco Enriquez Personal/Family Self 1960 [address] [place] [address] Care Teams Binder Technician Relationship Specialty Start Date End Date Elieser Bush DO PCP - General Family Medicine 07/15/[address] [facility] [place] [address]
--- OUTSIDE RECORDS SUMMARY | 2022-02-02 00:34 | XMS_ITS | Encounter Summary ---
:1960 Author Organization [facility] [place] [address] Care Team Providers Name Role Phone Elieser Bush DO Primary Care Provider Encounter Details Date Type Department Care Team Description 08/18/2019 [address] Encounter [facility]Ray at [facility] [place] Praveen Gonzalez, Left hand pain [address] [facility] [place] [address] [facility] [phone] ORTHOPAEDIC SURGERY [place], [place] [address] Social History Tobacco Use Types Packs/Day Years [...] on file documented as of this encounter Medications at Time of Discharge Medication Sig Dispensed Refills Start Date End Date gabapentin (NEURONTIN) 100 100 MG = 1 0 8 mg capsule Capsule(s), PO, Three times daily lisinopril-hydrochlorothia 1 Tablet(s), PO, Once 0 04/14/2007 zide (PRINZIDE;ZESTORETIC) daily 20-12.5 mg per tablet amLODIPine (Norvasc) 5 mg 0 06/19/2019 Tablet OXYcodone (ROXICODONE) 5 5 MG = 1 Tablet(s), 0 mg immediate release PO, Q6H,PRN tablet sildenafil (VIAGRA) 100 mg 50mg, PO, PRN 0 2006 tablet phenytoin (DILANTIN) 100 100 MG = 1 0 04/14/2007 mg ER capsule Capsule(s), PO, Three times daily documented as of this encounter Plan of Treatment Not on filedocumented as of this encounter Procedures Procedure Name Priority Date/Time Associated Diagnosis Comme nts XR HAND MIN 3 VIEWS Routine 08/18/2019 10:40 AM Left hand pain Results for this LEFT EST procedure are i n the results section. documented in this encounter Results XR Hand Min 3 [...] report, please contact e number below. ? Electronically signed by: REED Turner [facility] ([phone]), at 08/18/2019 11:38 AM Narrative 08/18/2019 11:38 AM EST EXAMINATION: XR [...] this report, please contact e number below. Electronically signed by: Cony Carpio [facility] ([phone]), at 08/18/2019 11:38 AM Praveen Gonzalez MD IMG DX ORDERABLES documented in this encounter Visit Diagnoses Diagnosis Left hand pain Pain in limb documented in this encounter Care Teams Webbing Weaver Relationship Specialty Start Date End Date Elieser Bush DO PCP - General Family Medicine 07/15/[address] [place] [address] documented as of this encounter
--- OUTSIDE RECORDS SUMMARY | 2022-02-02 00:35 | XMS_ITS | Clinical Summary ---
:1960 Author Organization [facility] Address [address] [place] [address] Care Team Providers Name Role Phone Elieser Bush DO Primary Care Provider Allergies No known active allergies Social History Tobacco Use Types Packs/Day Years Used Date Current Some Day Smoker Smokeless Tobacco: Current User Snuff Alcohol Use Standard Drinks/Week Comments Yes 0 (1 standard drink = 0.6 oz pure alcoho l) every day Alcohol Habits Answer Date Recorded How often do you have a drink containing alcohol? Not asked How many drinks containing alcohol do you have on a typical Not asked day when you are drinking? How often do you have six or more drinks on one occasion? No t asked Comment: every day 03/06/2019 Sex Assigned at Date Recorded Not on file Last Filed Vital Signs Vital Sign Reading Time Taken Comments Blood Pressure 171/73 03/06/2019 1714 EDT Pulse 68 03/06/2019 1714 EDT Temperature 36.8 ??C (98.2 ??F) 03/06/2019 1347 EDT Respiratory Rate 18 03/06/2019 1714 EDT Oxygen Saturation 97% 03/06/2019 1714 EDT Inhaled Oxygen Concentration - - Weight 95.3 kg (210 lb) 03/06/2019 1347 EDT Height - - Body Mass Index - - Plan of Treatment Health Maintenance Due Date Last Done Comments Pneumococcal Immunization (1 of 2 - PPSV23) 10/28/1965 Care Teams Broadcast Journalist Relationship Specialty Start Date End Date Elieser Bush, DO PCP - General 03/08/[address] [place] [address]
--- OUTSIDE RECORDS SUMMARY | 2022-02-02 00:35 | XMS_ITS | Encounter Summary ---
:1960 [place] [address] Care Team Providers Name Role Phone Rishabh Ca MD Primary Care Provider Encounter Details Date Type Department Care Team Description 03/10/2019 Ancillary Procedure Radiology Library at [facility] [place] [address] [place] [address] ORTHOPAEDIC SURGERY [phone] [place], [place] [address] (Wo rk) Social History Tobacco Use Types Packs/Day Years Used Date Never Assessed Sex Assigned at Date Recorded Not on file documented as of this encounter Plan of Treatment Not on filedocumented as of this encounter Procedures Procedure Name Priority Date/Time Associated Diagnosis Comme nts FILM LIBRARY Routine 03/10/2019 12:00 AM Results for this STORAGE ONLY DX EDT procedure ar e in HAND the results section. documented in this encounter Results Film Library- Storage Only DX Hand (03/10/2019 12:00 AM EDT) Specimen (Source) Anatomical Location Collection Method / Collectio n Time Received Time / Laterality Volume Narrative [facility] - 03/26/2019 5:36 PM EDT This exam is auto-finalizing. It's purpo se is for storage only. Praveen Gonzalez MD IMG FILM LIBRARY ORDERABLES Performing Organization Address City/State/ZIP Code Phon e Number [facility] [place], [place] documented in this encounter Visit Diagnoses Not on filedocumented in this encounter Care Teams Special Events Driver Relationship Specialty Start Date End Date Rishabh Ca MD PCP - General 06/07/10 03/24/19 [address] [place] [address] documented as of this encounter
--- OUTSIDE RECORDS SUMMARY | 2022-02-02 00:35 | XMS_ITS | Encounter Summary ---
:1960 [place] [address] Care Team Providers Name Role Phone Rishabh Ca MD Primary Care Provider Encounter Details Date Type Department Care Team Description 03/07/2019 Ancillary Procedure Radiology Library at [facility]iel Gonzalez [facility] [place] [address] ORTHOPAEDIC SURGERY [phone] [place], [place] [address] (Wo rk) Social History Tobacco Use Types Packs/Day Years Used Date Never Assessed Sex Assigned at Date Recorded Not on file documented as of this encounter Plan of Treatment Not on filedocumented as of this encounter Procedures Procedure Name Priority Date/Time Associated Diagnosis Comme nts FILM LIBRARY Routine 03/07/2019 12:05 AM Results for this STORAGE ONLY DX EDT procedure ar e in HAND the results section. documented in this encounter Results Film Library- Storage Only DX Hand (03/07/2019 12:05 AM EDT) Specimen (Source) Anatomical Location Collection Method / Collectio n Time Received Time / Laterality Volume Narrative [facility] - 07/14/2019 5:48 PM EST This exam is auto-finalizing. It's purpo se is for storage only. Praveen Gonzalez MD IMG FILM LIBRARY ORDERABLES Performing Organization Address City/State/ZIP Code Phon e Number [place], [place] documented in this encounter Visit Diagnoses Not on filedocumented in this encounter Care Teams Spray Stainer Relationship Specialty Start Date End Date Rishabh Ca MD PCP - General 06/07/10 03/24/19 [address] [place] [address] documented as of this encounter
--- OUTSIDE RECORDS SUMMARY | 2022-02-02 00:35 | XMS_ITS | Encounter Summary ---
:1960 Author Organization [facility] Address [address] [place] [address] Care Team Providers Name Role Phone Elieser Bush Primary Care Provider Encounter Details Date Type Department Care Team Description 04/21/2020 Lab Requisition [facility] Outr Resulting Lab, Pathology & Laboratory Provider [facility] [address] [place], [place] [address] Social History Tobacco Use Types Packs/Day Years [...] encounter Procedures Procedure Name Priority Date/Time Associated Comments Diagnosis PSA TOTAL, Routine 04/21/2020 9:25 EDT Results for this DIAGNOSTIC procedure are i n the results section. documented in this encounter Results PSA TOTAL, DIAGNOSTIC (04/21/2020 9:25 EDT) Pathologist Sig nature PSA 0.7 0.0 - 4.5 ng/mL [facility] Specimen Blood - Venous blood (substance) Narrative [facility] - 04/22/2020 9:35 EDT NOTE: Serum PSA concentration should not be in terpreted as absolute evidence for the presence or absence of malignant disease. Assayed on Siemens ADVIA Centaur XPT usi ng chemiluminescent technology.??Values obtained by using different assay methods cannot be used interchangeably. Performing Organization Address City/State/ZIP Code Phon e Number [facility] [address] [place] [address] SERVICES documented in this encounter Visit Diagnoses Not on filedocumented in this encounter Care Teams Child Nurse Relationship Specialty Start Date End Date Elieser Bush, PCP - General 03/08/19 [facility] [employer], [place] [address] documented as of this encounter
--- OUTSIDE RECORDS SUMMARY | 2022-02-02 00:35 | XMS_ITS | Encounter Summary ---
:1960 Author Organization [facility] Address [address] [place] [address] Care Team Providers Name Role Phone Unavailable Primary Care Provider Unavailable Encounter Details Date Type Department Care Team Description 03/06/2019 Travel Social History Tobacco Use Types Packs/Day Years [...] Not on filedocumented as of this encounter Visit Diagnoses Not on filedocumented in this encounter
--- OUTSIDE RECORDS SUMMARY | 2022-02-02 00:35 | XMS_ITS | Encounter Summary ---
:1960 Author Organization [facility] Address [address] [place] [address] Care Team Providers Name Role Phone Unavailable Primary Care Provider Unavailable Reason for Visit Reason Comments Hand Injury piece of steel fell onto alexander d; fell from long distance. Hand bandaged and not unwrapped in triage. Jaz ears in pain Encounter Details Date Type Department Care Team Description 03/06/2019 Emergency [facility] Delfin Ann PA-C [address] [id number] Closed fracture of left hand, initial en counter (Primary Dx); Emergency Department ShehusamrArturo MD [address] [phone] Elevated blood pressure reading - [facility] Tucker Guzman PA-C [address] [place] [address] [place] [address] EmergencyRicky MD [place], [place] [id number] Social History Tobacco Use Types Packs/Day Years [...] on file documented as of this encounter Last Filed Vital Signs Vital Sign Reading Time Taken Comments Blood Pressure 171/73 03/06/2019 1714 EDT Pulse 68 03/06/2019 1714 EDT Temperature 36.8 ??C (98.2 ??F) 03/06/2019 1347 EDT Respiratory Rate 18 03/06/2019 1714 EDT Oxygen Saturation 97% 03/06/2019 1714 EDT Inhaled Oxygen Concentration - - Weight 95.3 kg (210 lb) 03/06/2019 1347 EDT Height - - Body Mass Index - - documented in this encounter Discharge Diagnoses Diagnosis S62.337A Displaced fracture of neck of f ifth metacarpal bone, left hand, initial encounter for closed fracture-S62.337A[I CD-10-CM] S62.613A Displaced fracture of proximal phalanx of left middle finger, initial encounter for closed fracture-S62.613A[I CD-10-CM] S62.615A Displaced fracture of proximal phalanx of left ring finger, initial encounter for closed fracture-S62.615A[I CD-10-CM] S62.617A Displaced fracture of proximal phalanx of left little finger, initial encounter for closed fracture-S62.617A[I CD-10-CM] S60.222A Contusion of left hand, initial encounter-S60.222A[ICD-10-CM] W20.8XXA Other cause of strike by thrown , projected or falling object, initial encounter-W20.8XXA[ICD-10-CM] Y99.0 Civilian activity done for income or pay-Y99.0[ICD-10-CM] I10 Essential (primary) hypertension-I10 [ICD-10-CM] M79.642 Pain in left hand-M79.642[ICD-10 -CM] M79.89 Other specified soft tissue disor ders-M79.89[ICD-10-CM] F17.210 Nicotine dependence, cigarettes, uncomplicated-F17.210[ICD-10-CM] documented in this encounter Discharge Instructions Carol Wheeler PA-C - 03/06/2019 Do not put weight on your splint. Keep splint dry. Your blood pressure was high today, you should follow up with your PCP about this. Rest, apply ice, elevate to reduce swelling, take ibuprofen and/or tylenol as needed for pain. Follow up with orthopedics, they will call you to set up follow up appointment. Come back to the ER if any severe pain, numbness, weakness, or any discolored or dusky colored fingers. documented in this encounter Discharge Disposition Disposition Code Departure Means Destination Home or Self Care documented in this encounter Consult Notes Venkata Floyd MD - 03/06/2019 1443 EDT Images from the original note were not included. 03/06/2019, 14:43 Orthopaedic Surgery Consultation Consultation requested by Carol Allen regarding left hand/finger fractures CC: left hand pain HPI: Choco Enriquez is a 58 y.o. RHD male history of hypertension who presents with left hand painand deformity following dropping 150 pound object on left hand. Patient was at work when he dropped 150 pound steel channel onto his left hand. He had immediate pain and deformity and his coworker brought him to the [facility] emergency department. 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 Reports that the accident happened around 12:15 PM today. Since the accident, he has noticed decreased sensation of his left long finger and small finger, and numbness of hisleft ring finger. He did not notice any bleeding or open wounds following the accident. No recent nausea, vomiting, fevers, chills, chest pain, shortness of breath. PMH: has no past medical history on file. PSH: has no past surgical history on file. Medications: No current facility-administered medications for this encounter. No current outpatient medications on file. Allergies: has No Known Allergies. FHx/SHx: Pt lives in [address] [place] [address]. Right-hand dominant. 1 ppd smoker x 30 yrs. 6 pk/day ETOH. Denies IVDU ROS: Completed. See HPI. Objective: Blood pressure (!) 215/84, pulse 73, temperature 36.8 ??C (98.2 ??F), temperature source Oral, resp.rate 16, weight 95.3 kg (210 lb), SpO2 100 %. Gen: no acute distress, alert, normal mood & communication Cards: no evidence of cyanosis Pulm: non-labored breathing, no audible wheezing MSK: LUE: There is swelling of the left hand most noticeable of the left long finger, ring finger, and small finger. There is ecchymosis of the left ring finger. There is a small puncture wound over the dorsal aspect of the DIP of the left long finger that the patient reports is not a new injury and that he sustained this the day prior. 2+ radial, WWP Sensation is intact but decreased on the radial and ulnar aspects of the distal aspect of the left long finger and small finger. Patient has lack of sensation of the distal tip of the left ring finger,but sensation is intact but decreased proximal to the tip of the left ring finger. Plethography of left RF showing poor and inconsistent waveform, sats ranging from 30-90% Labs: , , , Imaging: ?? Left hand 3 view: There is a short oblique fracture of the left long finger proximal third of theproximal phalanx with radial palmar angulation and slight shortening. There is a minimally displacedcomminuted fracture of the left ring finger proximal phalanx proximal third shaft. There is a comminuted fracture of the left small finger proximal phalanx shaft with radial ulnar angulation and slightshortening. There is a oblique fracture of the left metacarpal neck with palmar angulation. Procedure: The risks, benefits, and alternatives of the procedure were discussed with the patient; the patient elected to proceed with closed reduction of left hand/finger fractures and application of splint and verbal consent was obtained prior to proceeding. Local anesthesia was administered via medial and ulnar nerve block by the emergency department staff. Once adequate anesthesia was obtained, the patient's left long finger, ring finger, small finger proximal phalanx fractures and left fifth metacarpal neck fractures were closed reduced, placed into a a volar dorsal slab splint, and molded appropriately in an intrinsic plus mold. Patient tolerated the procedure well and there were no complications. Postprocedure imaging showed improved alignment. Post procedure exam was unchanged. Dr. Arturo Thompson was the supervising emergency room physician and was present for the oviedo and critical steps of the procedure Assessment & Plan: [phone] Choco Enriquez 1960 Choco Enriquez is a 58 y.o. male history of hypertension who presents with left LF, RF, and SF proximal phalanx fractures and left 5th metacarpal neck fracture now s/p closed reduction and splinting in the ED 1. Keep splint clean, dry, intact 2. Rest, ice, elevate left upper extremity 3. Tylenol and ibuprofen pain control 4. Patient will need close follow-up in orthopedic upper extremity clinic, will call with follow-up appointment 5. NWB left hand Discussed with: Dr. Jus Floyd MD 03/06/2019 14:43 [id number] documented in this encounter ED Notes Shobha Valera RN - 03/06/2019 1744 EDT Orders for discharge. AVS provided to patient and reviewed by NOEL Guzman, plan for ortho to call tomorrow am for follow up apppointment. IV removed without complications. Patient ambulated out of ED with steady gait. Shobha Gonzalez RN - 03/06/2019 1737 EDT Patient requesting to leave. NOEL Guzman notified and at bedside to update. Shobha Gonzalez RN - 03/06/2019 1627 EDT Ambulated to bathroom independently,, steady gait Shobha Gonzalez RN - 03/06/2019 1550 EDT at bedside, sat probe placed on left ring finger, sat of 56% with good pleth Shobha Gonzalez RN - 03/06/2019 1519 EDT MD Thompson at bedside for ultrasound Shobha Gonzalez RN - 03/06/2019 1517 EDT Ortho at bedside Shobha Gonzalez RN - 03/06/2019 1510 EDT Report from SHAE Barrera. Patient resting comfortably in bed. Left hand is very swollen and discolored. Left ring finger is blue/purple, cap refill is 3-4sec. Ortho to see, NPO until they evaluate. Denies any needs at this time. Carol Jameson PA-C - 03/06/2019 1447 EDT DOS: 03/06/2019 Chief Complaint Patient presents with ??? Hand Injury piece of steel fell onto hand; fell from long distance. Hand bandaged and not unwrapped in triage. Appears in pain HPI The patient is a 58 y.o. male who presents today with Hand Injury (piece of steel fell onto hand; fell from long distance. Hand bandaged and not unwrapped in triage. Appears in pain) HPI Patient is a 58-year-old female who presents to the emergency department with left hand injury. Patient was at work today when a large piece of steel (estimates 150 pounds) fell and landed on the left his left hand. Since that time his had pain, swelling, and bruising to the left hand. Patient is right- hand dominant. Review of Systems Review of Systems Constitutional: Negative for chills and fever. Musculoskeletal: Positive for arthralgias and joint swelling. Negative for back pain and neck pain. Skin: Positive for color change. Negative for pallor, rash and wound. Neurological: Negative for weakness and numbness. No Known Allergies Vital Signs Vitals Reassessment?: Yes Temp: 36.8 ??C (98.2 ??F) Temp src: Oral Pulse: 68 Resp: 18 SpO2: 97 % BP: (!) 171/73 BP MAP: 97 mm Hg Physical Exam Constitutional: He appears well-developed and well-nourished. No distress. Nontoxic, sitting upright HENT: Head: Normocephalic and atraumatic. Cardiovascular: Ulnar and distal pulses are 2+. Musculoskeletal: Left hand: Edematous and + visual deformity to the hand and digits, sparing the thumb. The fourth digit is dusky and slightly cool to the touch. Neurological: He is alert. Decreased sensation to distal fourth digit on the left hand Skin: Skin is warm and dry. No rash noted. He is not diaphoretic. No erythema. No pallor. Psychiatric: He has a normal mood and affect. Vitals reviewed. RESULTS EKG orders: None Radiology orders: HAND 3 OR MORE VIEWS POCT US SOFT TISSUE MSK HAND 3 OR MORE VIEWS PORT FLUORO UP TO 1 HOUR Procedures ED COURSE A medical screening exam was performed. 58-year-old male with injury to left hand after heavy piece of metal falling on it. Has fractures tofifth metacarpal, third, fourth, and fifth proximal phalanx. Concern for vascular injury and to the fourth digit. Promptly after my evaluation ED attending Dr. Thompson was involved in the case, and orthopedics were consulted. I performed a digital nerve block in the left fourth digit with lidocaine and bupivacaine (4 cc total) with good anesthesia. Bedside reduction and splinting performed by orthopedics. Patient will be discharged with close follow up with orthopedics. Also, patient's blood pressure to be elevated while in ED, advised to follow up with PCP regarding this. Final diagnoses: Closed fracture of left hand, initial encounter Elevated blood pressure reading DISPOSITION: Discharged The patient's pain was managed to an adequate level weighing risk vs. benefit of further medications. Upon departure from the Emergency Department, the patient's pain was not asked on a zero to ten scale. Any further pain treatment will be at the discretion of the provider following up with the patient based on their clinical assessment. Condition at departure from the Emergency Department: Good PCP: To Be Added Waiting MDM Dr. Thompson available for supervision 03/07/2019 15:02 No flowsheet data found. rturo Salgado MD, MD - 03/06/2019 1417 EDT I, Geraldine Parra, am scribing for Arturo Thompson MD while he/she is personally performing the service. Geraldine Parra 03/06/2019 14:17 I performed a history and exam of this patient and discussed the case with the PA. I reviewed this individual's note and I concur with the documented findings and plan of care except as documented differently. ROS as per PA chart. Choco Enriquez is a 58 y.o. male with no significant history who presents to the ED after 150 pound steel fell on his hand. The patient endorses pain, swelling, and bruising to his left hand. He denies any other injuries. Physical Exam Vitals: Reviewed. General: In no acute distress. Alert and awake, oriented. HEENT: No visible or palpable scalp trauma, no active bleeding. No facial/oral/dental trauma evident. Neck: Full, painless range of motion. Chest: Normal work of breathing. Abd: No distention. Neuro: Grossly normal facial symmetry. Grossly normal extremity power, sensation. Exam limited by pain in affected extremity. Skin, general: Grossly Perfused. Warm and Dry. Laceration: none Abrasions: none Extremities: All extremities are normal (No deformity, tenderness, painless range of motion), with the exceptionof the following: Focused Exam of the left hand. Visible swelling or ecchymosis: yes dorsal especially Abnormal position/posture: no visible rotational deformity Tenderness: throughout Range of Motion: Painful/Limited: very limited, can wiggle all Distal Motor exam: wiggles all, diff against resistance. Distal Sensory exam: insensate left 4th. Distal perfusion, pulses: Poor perfusion in the 4th, from PIP distally. Dusky. Sat probe initially in hallway 99% with poor pleth, 50% when in bed on telemetry. Skin findings: Blanca discoloration 4th. Results ED Radiology: ?? Type: Hand X-ray ?? Final Impression: Multiple comminuted fractures to include the distal 5th metacarpal and proximal phalanx, 4th proximal phalanx, and 3rd proximal and middle phalanx. Multiple calcifications seen within the wrist ligamentous structures, would recommend obtaining 4 view radiographs of the wrist for further characterization. (Radiographs/Images reviewed and interpreted by me, contemporaneously with patient care. Radiology interpretation also reviewed, if available) Procedure Procedure: Ulnar and Median nerve block. Left Indication: fracture reduction Distal sensation:normal Ulnar nerve motor: hypothenar firing normally Skin prepped with aseptic technique FCU identified and 27 ga needle introduced beneath FCU, inserted approximately 1 cm. Aspiration without blood. Infiltration of Bupivicaine 10 cc without apparent complication. Cutaneous branch anesthetized through separate injection. 1 cc Bupivicaine used. Adequate anesthesia achieved. US used to identify Median nerve, and to inject in real time local anesthetic ED Course (1435) spoke with ortho about the patient, urgently based on the poor perfusion in the 4th and also the multiple complex fractures. (1540) The patient tolerated the procedures well. (1636) spoke with ortho about the patient. Reduction and splinting was successful. Please see the procedure note entered by the orthopedics resident. I personally supervised the procedure performed andwas physically present at the bedside for the oviedo and critical portions of the procedure. The patients fourth finger still appears dusky, discussed at length with Dr Floyd. He is speaking with Dr Bonner. Dr Bonner and Dr Floyd are comfortable discharging the patient, will likely see tomorrow. It is clearthat the perfusion is no better, but there does not appear to be anything to re-align in this digit.But Ortho attending has assessed that there is no reason for operative repair, or admission. Has recommended discharge. I have voiced my concern about the viability and poor perfusion in this digit, The patient was discharged home with instructions for a close follow-up with ortho clinic. This documentation is recorded by Geraldine Parra acting as Scribe under the direction and presence of Arturo Thompson MD. Arturo Thompson MD: I personally performed the services recorded by the scribe in my presence. I confirm the scribe's documentation has been reviewed by me to accurately and completely record my work, treatment, procedures, and medical decision making. Linda Mac RN - 03/06/2019 1347 EDT Chief Complaint Patient presents with ??? Hand Injury piece of steel fell onto hand; fell from long distance. Hand bandaged and not unwrapped in triage. Appears in pain documented in this encounter Plan of Treatment Not on filedocumented as of this encounter Procedures Procedure Name Priority Date/Time Associated Diagnosis Comme nts PORT FLUORO UP TO 1 03/06/2019 18:00 Resu lts for this HOUR EDT procedure are i n the results section. HAND 3 OR MORE STAT 03/06/2019 16:46 Results f or this VIEWS EDT procedure are i n the results section. POCT US SOFT TISSUE STAT 03/06/2019 15:40 Resu lts for this MSK EDT procedure are i n the results section. HAND 3 OR MORE STAT 03/06/2019 14:04 Results f or this VIEWS EDT procedure are i n the results section. 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 Comparisons: Left hand radiographs from 2 hours prior. Findings/Impression: Overlying casting material obscures fine bony detail. Previously described fractures of the 5t h metacarpal and 3rd through 4th phalanges are again seen. There has been interval reduction of the 3rd proximal phalangeal fracture wit h improvement in the fracture alignment. No unexpected radiop aque foreign body is identified. I have personally reviewed the images an d the above interpretation and agree with the findings. Procedure Note Wallace Patel MD, MD - 03/06/2019 HAND 3 OR MORE VIEWS 03/06/2019 4:46 PM History: s/p reduction r/o displacement Technique: 4 views of the left hand were obtained. Comparisons: Left hand radiographs from 2 hours prior. Findings/Impression: Overlying casting material obscures fine bony detail. Previously described fractures of the 5t h metacarpal and 3rd through 4th phalanges are again seen. There has been interval reduction of the 3rd proximal phalangeal fracture wit h improvement in the fracture alignment. No unexpected radiop aque foreign body is identified. I have personally reviewed the images an d the above interpretation and agree with the findings. Performing Organization Address City/State/ZIP Code Phon e Number [facility] POCT US SOFT TISSUE MSK (03/06/2019 15:40 EDT) Anatomical Region Laterality Modality Other Specimen Narrative [facility] - 03/21/2019 13:55 EDT [facility] - Ultrasound Exam Date: 03/06/2019 Exam Type: POCT US PROCEDURAL GUIDANCE Customer Orders Clerk: Fly Thompson MD Attending: N/A Worksheet: POCUS_Proc_nerve block Exam Information: ?? Ultrasound dynamic guidance was used for peripheral nerve block placement Exam Type: ?? Clinically Indicated Indication(s) for Exam: ?? The exam was performed with the foll owing indications: Pain, fracture, Other indications as noted in the H Location: ?? Left ?? Specific site of nerve block: ulnar, median Views obtained/location ?? Multiple sonographic views were obta ined in the following specific location: median Procedure: ?? Anesthetic used: 0.5% Bupivacaine (5 mg/kg) ?? Total mg anesthetic used: 10 Complications: Interpretation: ?? Successful U/S-guided peripheral ner ve block Confirmatory study: ?? What confirmatory study was done?: X ray US POCUS Preliminary Signature: ?? POCUS Preliminary Signature: Signed by Fly Thompson MD on Thursday, March 21, 2019 at 1:54:54 PM Physician Signature: ?? I review and approve of the document ation above.: Signed by Fly Thompson MD on Thursday, March 21, 2019 at 1:54:55 PM This exam was performed and interpreted by the [facility] ED Staff Procedure Note Arturo Thompson MD, MD - 03/21/2019 [facility] - Ultrasoun d Exam Date: 03/06/2019 Exam Type: POCT US PROCEDURAL GUIDANCE Customer Orders Clerk: Fly Thompson MD Attending: N/A Worksheet: POCUS_Proc_nerve block Exam Information: Ultrasound dynamic guidance was used fo r peripheral nerve block placement Exam Type: Clinically Indicated Indication(s) for Exam: The exam was performed with the followi ng indications: Pain, fracture, Other indications as noted in the H Location: Left Specific site of nerve block: ulnar, me arabella Views obtained/location Multiple sonographic views were obtaine d in the following specific location: median Procedure: Anesthetic used: 0.5% Bupivacaine (5mg/ kg) Total mg anesthetic used: 10 Complications: Interpretation: Successful U/S-guided peripheral nerve block Confirmatory study: What confirmatory study was done?: Xray US POCUS Preliminary Signature: POCUS Preliminary Signature: Signed by Fly Thompson MD on Thursday, March 21, 2019 at 1:54:54 PM Physician Signature: I review and approve of the documentati on above.: Signed by Fly Thompson MD on Thursday, March 21, 2019 at 1:54:55 PM This exam was performed and interpreted by the [facility] ED Staff Performing Organization Address City/State/ZIP Code Phon e Number [facility] HAND 3 OR MORE VIEWS (03/06/2019 14:04 EDT) Anatomical Region Laterality Modality Other Specimen Narrative [facility] - 03/06/2019 15:56 EDT HAND 3 OR MORE VIEWS 03/06/2019 2:04 PM History: left hand injury Technique: 3 views of the left hand were obtained. Comparisons: None Findings: There are multiple fractures identified. There is a comminuted minimally displaced fracture of the dist al head of the 5th metacarpal, as well as a diffusely commi nuted fracture of the 5th proximal phalanx. There is a minimally d isplaced fracture through the base of the 4th proximal phalanx. Ad ditional comminuted fractures of the 3rd proximal phalanx wi th 3 mm of posterolateral distraction as well as a fracture throug h the left middle phalanx. There is a large amount of soft tissue s welling in the hand diffusely. Multiple calcifications are s een in the wrist ligaments. Impression: 1. Multiple comminuted fractures to incl ude the distal 5th metacarpal and proximal phalanx, 4th pro ximal phalanx, and 3rd proximal and middle phalanx. 2. Multiple calcifications seen within t he wrist ligamentous structures, would recommend obtaining 4 view radiographs of the wrist for further characterization. I have personally reviewed the images an d the above interpretation and agree with the findings. Procedure Note Wallace Patel MD, MD - 03/06/2019 HAND 3 OR MORE VIEWS 03/06/2019 2:04 PM History: left hand injury Technique: 3 views of the left hand were obtained. Comparisons: None Findings: There are multiple fractures identified. There is a comminuted minimally displaced fracture of the dist al head of the 5th metacarpal, as well as a diffusely commi nuted fracture of the 5th proximal phalanx. There is a minimally d isplaced fracture through the base of the 4th proximal phalanx. Ad ditional comminuted fractures of the 3rd proximal phalanx wi th 3 mm of posterolateral distraction as well as a fracture throug h the left middle phalanx. There is a large amount of soft tissue s welling in the hand diffusely. Multiple calcifications are s een in the wrist ligaments. Impression: 1. Multiple comminuted fractures to incl ude the distal 5th metacarpal and proximal phalanx, 4th pro ximal phalanx, and 3rd proximal and middle phalanx. 2. Multiple calcifications seen within t he wrist ligamentous structures, would recommend obtaining 4 view radiographs of the wrist for further characterization. I have personally reviewed the images an d the above interpretation and agree with the findings. Performing Organization Address City/State/ZIP Code Phon e Number [facility] documented in this encounter Visit Diagnoses Diagnosis Closed fracture of left hand, initial en counter - Primary Elevated blood pressure reading Elevated blood pressure reading without diagnosis of hypertension documented in this encounter Administered Medications Inactive Administered Medications - up to 3 most recent administrations Medication Order MAR Action Action Date Dose Rate Site acetaminophen (TYLENOL) tablet Given 03/06/2019 14:19 EDT 1,000 mg 1,000 mg 1,000 mg, oral, NOW X1, 1 dose, On [place] 03/06/19 at 1430, STAT documented in this encounter Active and Recently Administered Medications Times are shown in EDT. Scheduled Medication Order 03/04/2019 03/05/2019 03/06/2019 acetaminophen (TYLENOL) tablet 1,000 mg (COMPLETED) 1419 (Given - Provider: Yogesh Hadley RN) 1,000 mg, oral, NOW X1, 1 dose, [place] 03/06/19 at 1430, STAT documented in this encounter Orders Medications Ordered That Might Not Have Count Last Ord ered Date First Ordered Date Been Administered acetaminophen (TYLENOL) tablet 1,000 mg 1 03/06/20 19 documented in this encounter
--- OUTSIDE RECORDS SUMMARY | 2022-02-02 00:35 | XMS_ITS | Encounter Summary ---
:1960 [place] [address] Care Team Providers Name Role Phone None Primary Care Provider Unavailable Encounter Details Date Type Department Care Team Description 04/04/2019 Ancillary Procedure Radiology Library at Osiel Gonzalez [facility] [place] [address] ORTHOPAEDIC SURGERY [phone] [place], [place] [address] (Wo rk) Social History Tobacco Use Types Packs/Day Years Used Date Never Assessed Sex Assigned at Date Recorded Not on file documented as of this encounter Plan of Treatment Not on filedocumented as of this encounter Procedures Procedure Name Priority Date/Time Associated Diagnosis Comme nts FILM LIBRARY Routine 04/04/2019 12:00 AM Results for this STORAGE ONLY DX EDT procedure ar e in HAND the results section. documented in this encounter Results Film Library- Storage Only DX Hand (04/04/2019 12:00 AM EDT) Specimen (Source) Anatomical Location Collection Method / Collectio n Time Received Time / Laterality Volume Narrative REED GREEN - 07/14/2019 5:52 PM EST This exam is auto-finalizing. It's purpo se is for storage only. Praveen Gonzalez MD [employer] FILM LIBRARY ORDERABLES Performing Organization Address City/State/ZIP Code Phon e Number [facility] [place], [place] documented in this encounter Visit Diagnoses Not on filedocumented in this encounter Care Teams Nursing Professor Relationship Specialty Start Date End Date None PCP - General 03/25/19 07/14/19 None documented as of this encounter
--- OUTSIDE RECORDS SUMMARY | 2022-02-02 00:35 | XMS_ITS | Encounter Summary ---
:1960 Author Organization [facility] Address [address] [place] [address] Care Team Providers Name Role Phone EleazarElieser parra Primary Care Provider Encounter Details Date Type Department Care Team Description 01/10/2021 Lab Requisition [facility] Outr Resulting Lab, Pathology & Laboratory Provider [facility] [address], [place] [address] Social History Tobacco Use Types Packs/Day Years [...] Procedure Name Priority Date/Time Associated Comments Diagnosis LYME AB Routine 01/09/2021 12:40 Results for this EDT procedure are i n the results section. ZZLYME IMMUNOBLOT Today 01/09/2021 12:40 Result s for this CONFIRMATION EDT procedure are i n the results section. documented in this encounter Results LYME IMMUNOBLOT CONFIRMATION (01/09/2021 12:40 EDT) Lyme IGG ImmunoBlot Negative Negative [facility] Lyme IGG Bands No Bands [facility] Detected LABORATORY SERVICES Lyme IgM ImmunoBlot Negative Negative [facility] Lyme IGM Band(s) No Bands [facility] Detected LABORATORY SERVICES Lyme Immunoblot See Comment [facility] Interpretation LABORATORY SERVICES Specimen Blood - Venous blood (substance) Narrative [facility] - 01/13/2021 14:07 EDT Specific serologic response to B. burgdorferi infection is not detected. ??This may indicate lack of infection, lack of seroconversion or low /undetectable antibody levels to B. burgdorferi. ??If clinically indicated, a new serum specimen should be submitted in 7-14 days. CDC criteria require greater than or equ al to the presence of 5 bands for IgG or greater than or equal to 2 bands for IgM for the Immunoblot to be considered positive. Bands may be detected in patients without Lyme Disease. Patterns not meeti ng CDC criteria should be interpreted with caution. ??Per CDC guidelines, Immunoblot testing should only be performed on specimens that are positive or equivocal by Immunoassay. Performing only the Immu noblot increases the possibility of false positive results. Results should be considered positive only when both the Immunoassay and the Immunoblot are positive. Performing Organization Address City/State/ZIP Code Phon e Number [facility] [address] [place] [address] SERVICES (ABNORMAL) LYME AB (01/09/2021 12:40 EDT) Pathologist Sig nature Lyme Ab Positive (A) Negative [facility] Comment: LABORATORY SERVICES Lyme Immunoblot confirmation added by reflex. New 3rd generation assay in use 12/24/2019 The [employer] Lyme Liaison Ly me Total Antibody Plus assay contains antigens from Borrelia burgdorferi, Borrelia garinii, and Borelia afzelli. ??Results from the second-step western blots that detect only B. burgdorferi specific antigens should be interprete d with caution. Specimen Blood - Venous blood (substance) Performing Organization Address City/State/ZIP Code Phon e Number [facility] [address] [place] [address] SERVICES documented in this encounter Visit Diagnoses Not on filedocumented in this encounter Care Teams Hvac Service Technician Relationship Specialty Start Date End Date Elieser Bush, PCP - General 03/08/19 [address] [facility] [place] [address] documented as of this encounter
--- OUTSIDE RECORDS SUMMARY | 2022-02-02 00:35 | XMS_ITS | Encounter Summary ---
:1960 Author Organization [facility] [place] [address] Care Team Providers Name Role Phone None Primary Care Provider Unavailable Reason for Referral Diagnostic Test (Routine) - Closed Specialty Diagnoses / Procedures Referred By Contact Refer red To Contact Radiology Diagnoses Crushing injury of left hand, subsequent encounter Closed displaced fracture of neck of fifth metacarpal bone of left hand with routine healing, subsequent encounter Jaswant Rosen MD [facility] Rad Mri Procedures MRI Hand wo Contrast Left [address] [address] Referral ID Status Reason Start Date Expiration Date Visits V isits Requested Authorized [id number] Closed Specialty 03/19/2019 03/18/2020 1 1 Service Requested Reason for Visit Diagnostic Test (Routine) - Closed Specialty Diagnoses / Procedures Referred By Contact Refer red To Contact Radiology Diagnoses Crushing injury of left hand, subsequent encounter Closed displaced fracture of neck of fifth metacarpal bone of left hand with routine healing, subsequent encounter Jaswant Rosen MD [facility] Rad Mri Procedures MRI Hand wo Contrast Left [address] [address] Referral ID Status Reason Start Date Expiration Date Visits V isits Requested Authorized [id number] Closed Specialty 03/19/2019 03/18/2020 1 1 Service Requested Encounter Details Date Type Department Care Team Description 03/25/2019 Hospital Encounter MRI at [facility] [place], Crushing injury of left hand , subsequent encounter; [facility] MD Jaswant Closed displaced fracture of neck of fif th metacarpal bone of left hand with routine healing, subsequent encounter Drive [address] [facility], [address] [place] [id number] [phone] Social History Tobacco Use Types Packs/Day Years [...] zide (PRINZIDE;ZESTORETIC) daily 20-12.5 mg per tablet OXYcodone (ROXICODONE) 5 5 MG = 1 [...] Name Priority Date/Time Associated Diagnosis Comme nts MRI HAND LEFT WO Routine 03/25/2019 12:10 PM Crushing injury o f Results for this CONTRAST EDT left hand, procedure are i n subsequent encou nter the results Closed displaced section. fracture of neck of fifth metacarpal bone of left hand with routine healing, subsequent encounter documented in this encounter Results MRI Hand wo Contrast Left (03/25/2019 12:10 PM EDT) Anatomical Region Laterality Modality Hand Left Magnetic Resonance Specimen (Source) Anatomical Location Collection Method / Collectio n Time Received Time / Laterality Volume Impressions 03/25/2019 2:01 PM EDT 1. ??Complete rupture of the flexor digitorum profundus tendon of the ring finger. The distal tendon stump is appro ximately 1.7 cm distal to the ring finger MCP joint. The proximal tendon st ump is seen at the level of the ring finger MCP joint. 2. ??There is associated disruption of t he ulnar-sided sagittal band of the ring finger at the level of the proximal phal anx, enabling the flexor digitorum profundus to displace so that it is in a position that is superficial to the flexor digitorum superficialis. 3. ??Multiple fractures of the long fing er proximal phalanx, ring finger proximal phalanx, small finger proximal phalanx, and at the head and neck of the fifth metacarpal. 4. ??Multiple additional sites of signal alteration of the long and ring finger middle phalanges and the small finger mi ddle phalanx which could represent additional sites of fracture or bone con tusion. Correlation with radiographs would be helpful. 5. ??Signal alteration in the soft tissu es of the ulnar side of the hand and involving the hyperthenar muscles and so ft tissues, consistent with soft tissue injury. 6. ??Intramuscular edema of the inteross eous and hyperthenar muscles around the small finger may represent muscular cont usion or injury. Thank you for letting us participate in the care of this patient. For questions regarding this report, please contact th e number below. ? Narrative 03/25/2019 2:01 PM EDT EXAMINATION: MRI HAND WO CONTRAST LEFT CLINICAL HISTORY: wc/ lt flexer tendon i nj. Additional history: According to scanned orthopedic clinic notes dated , the patient had a crush injury of the left hand with multiple fractures on March 06, 2019. However, radiographs demonstrating these post rhe umatic injuries are not available in our PACS for a person. ORDER IN SCAN DOC; WC TECHNIQUE: MR of the left ring finger was performed . Sequences include axial proton density, axial T2 with fat saturation, c oronal T2 with fat saturation, coronal proton density, sagittal T1, sagittal T2 with fat saturation. Additional axial T2 with fat saturation and axial proton density sequences were acquired subtle more proximally in the hand. COMPARISON: See above. FINDINGS: There is a skin marker along the dorsal aspect of the ring finger proximal phalanx, indicating the site of clinical symptoms. Tendons: There is no disruption of the v isualized extensor digiti communis tendon of the ring finger. There is complete rupture of the flexor digitorum profundus tendon of the ring finger, at the level of the base of the proximal phalanx. The distal tendon stump is seen approximately 1.7 cm dista l to the ring finger MCP joint (series 7, image 14). This distal tendon stump i s deep to the flexor digitorum superficialis tendon at this level, but at the level of the neck of the proximal phalanx, the flexor digitorum profundus flips to a position that is more superficial than the flexor digitorum blackman perficialis tendon (series 3, image 17) and continues along its course without f urther disruption to its insertion on the base of the distal phalanx. The prox imal tendon stump is seen at the level of the ring finger MCP joint (series 3, image 4 and series 7, image 15). There is no disruption of the visualized extensor or flexor tendons of the long finger small finger. Ligaments: There is disruption of the ul rodney-sided sagittal band of the ring finger at the level of the proximal phal anx, enabling the flexor digitorum profundus to displace to a position that is superficial to the flexor digitorum superficialis (series 3, image 16). Bones and joints: There is a fracture through the shaft of the long finger proximal phalanx (series 6, image 26) and the ring finger proximal phalanx (series 6, image 14). There is an intra-articular fracture at the base of the small finger proximal phalanx with impaction at the fifth MCP joint (series 7, image 4). There is a fracture through the head and neck of th e fifth metacarpal (series 6, image 6). There is T2 hyperintense signal alterati on of the head of the fifth metacarpal, the entire fifth proximal phalanx, the e ntire ring finger and nearly the entire long finger proximal phalanges. There is also T2 hyperintense signal alteration of the middle phalanges of the long and ring finger and to a lesser extent the middle phalanx of the small finger. Thes e could represent sites of acute bony injury including any combination of bone contusion or additional fracture sites. Other soft tissues: There is diffuse sof t tissue swelling of the ulnar side of the hand both on the dorsal and palmar a spect and extending into the long, ring, and small fingers, consistent with soft tissue injury. There is intramuscular edema of the inte rosseous muscles and hyperthenar muscles, particularly around the small f tereso. Procedure Note Kelli Whipple MD - 03/25/2019Formattin g of this note might be different from the original. EXAMINATION: MRI HAND WO CONTRAST LEFT CLINICAL HISTORY: wc/ lt flexer tendon i nj. Additional history: According to scanned orthopedic clinic notes dated , the patient had a crush injury of the left hand with multiple fractures on March 06, 2019. However, radiographs demonstrating these post rhe umatic injuries are not available in our PACS for a person. ORDER IN SCAN DOC; WC TECHNIQUE: MR of the left ring finger was performed . Sequences include axial proton density, axial T2 with fat saturation, c oronal T2 with fat saturation, coronal proton density, sagittal T1, sagittal T2 with fat saturation. Additional axial T2 with fat saturation and axial proton density sequences were acquired subtle more proximally in the hand. COMPARISON: See above. FINDINGS: There is a skin marker along the dorsal aspect of the ring finger proximal phalanx, indicating the site of clinical symptoms. Tendons: There is no disruption of the v isualized extensor digiti communis tendon of the ring finger. There is complete rupture of the flexor digitorum profundus tendon of the ring finger, at the level of the base of the proximal phalanx. The distal tendon stump is seen approximately 1.7 cm dista l to the ring finger MCP joint (series 7, image 14). This distal tendon stump i s deep to the flexor digitorum superficialis tendon at this level, but at the level of the neck of the proximal phalanx, the flexor digitorum profundus flips to a position that is more superficial than the flexor digitorum blackman perficialis tendon (series 3, image 17) and continues along its course without f urther disruption to its insertion on the base of the distal phalanx. The prox imal tendon stump is seen at the level of the ring finger MCP joint (series 3, image 4 and series 7, image 15). There is no disruption of the visualized extensor or flexor tendons of the long finger small finger. Ligaments: There is disruption of the ul rodney-sided sagittal band of the ring finger at the level of the proximal phal anx, enabling the flexor digitorum profundus to displace to a position that is superficial to the flexor digitorum superficialis (series 3, image 16). Bones and joints: There is a fracture through the shaft of the long finger proximal phalanx (series 6, image 26) and the ring finger proximal phalanx (series 6, image 14). There is an intra-articular fracture at the base of the small finger proximal phalanx with impaction at the fifth MCP joint (series 7, image 4). There is a fracture through the head and neck of th e fifth metacarpal (series 6, image 6). There is T2 hyperintense signal alterati on of the head of the fifth metacarpal, the entire fifth proximal phalanx, the e ntire ring finger and nearly the entire long finger proximal phalanges. There is also T2 hyperintense signal alteration of the middle phalanges of the long and ring finger and to a lesser extent the middle phalanx of the small finger. Thes e could represent sites of acute bony injury including any combination of bone contusion or additional fracture sites. Other soft tissues: There is diffuse sof t tissue swelling of the ulnar side of the hand both on the dorsal and palmar a spect and extending into the long, ring, and small fingers, consistent with soft tissue injury. There is intramuscular edema of the inte rosseous muscles and hyperthenar muscles, particularly around the small f tereso. IMPRESSION 1. Complete rupture of the flexor digito rum profundus tendon of the ring finger. The distal tendon stump is appro ximately 1.7 cm distal to the ring finger MCP joint. The proximal tendon st ump is seen at the level of the ring finger MCP joint. 2. There is associated disruption of the ulnar-sided sagittal band of the ring finger at the level of the proximal phal anx, enabling the flexor digitorum profundus to displace so that it is in a position that is superficial to the flexor digitorum superficialis. 3. Multiple fractures of the long finger proximal phalanx, ring finger proximal phalanx, small finger proximal phalanx, and at the head and neck of the fifth metacarpal. 4. Multiple additional sites of signal a lteration of the long and ring finger middle phalanges and the small finger mi ddle phalanx which could represent additional sites of fracture or bone con tusion. Correlation with radiographs would be helpful. 5. Signal alteration in the soft tissues of the ulnar side of the hand and involving the hyperthenar muscles and so ft tissues, consistent with soft tissue injury. 6. Intramuscular edema of the interosseo us and hyperthenar muscles around the small finger may represent muscular cont usion or injury. Thank you for letting us participate in the care of this patient. For questions regarding this report, please contact e number below. Jaswant Rosen MD IMG MRI ORDERABLES documented in this encounter Visit Diagnoses Diagnosis Crushing injury of left hand, subsequent encounter Closed displaced fracture of neck of fif th metacarpal bone of left hand with routine healing, subsequent encounter documented in this encounter Care Teams Mixer Pigment Relationship Specialty Start Date End Date None PCP - General 03/25/19 07/14/19 None documented as of this encounter
--- OUTSIDE RECORDS SUMMARY | 2022-02-02 00:35 | XMS_ITS | Encounter Summary ---
:1960 [place] [address] Care Team Providers Name Role Phone Rishabh Ca MD Primary Care Provider Encounter Details Date Type Department Care Team Description 03/07/2019 Ancillary Procedure Radiology Library at Osiel Gonzalez [facility] [address] [place] [address] ORTHOPAEDIC SURGERY [phone] [place], [place] [address] (Wo rk) Social History Tobacco Use Types Packs/Day Years Used Date Never Assessed Sex Assigned at Date Recorded Not on file documented as of this encounter Plan of Treatment Not on filedocumented as of this encounter Procedures Procedure Name Priority Date/Time Associated Diagnosis Comme nts FILM LIBRARY Routine 03/07/2019 12:00 AM Results for this STORAGE ONLY DX EDT procedure ar e in HAND the results section. documented in this encounter Results Film Library- Storage Only DX Hand (03/07/2019 12:00 AM EDT) Specimen (Source) Anatomical Location Collection Method / Collectio n Time Received Time / Laterality Volume Narrative REED GREEN - 03/26/2019 5:35 PM EDT This exam is auto-finalizing. It's purpo se is for storage only. Praveen Gonzalez MD IMG FILM LIBRARY ORDERABLES Performing Organization Address City/State/ZIP Code Phon e Number [facility] [place], [place] documented in this encounter Visit Diagnoses Not on filedocumented in this encounter Care Teams Echometer Engineer Relationship Specialty Start Date End Date Rishabh Ca MD PCP - General 06/07/10 03/24/19 [address] [place] [address] documented as of this encounter
--- OUTSIDE RECORDS SUMMARY | 2022-02-02 00:35 | XMS_ITS | Encounter Summary ---
:1960 Author Organization [facility] Address [address] [place] [address] Care Team Providers Name Role Phone Elieser Bush Primary Care Provider Encounter Details Date Type Department Care Team Description 06/28/2020 Lab Requisition [facility] Outr Resulting Lab, Pathology & Laboratory Provider [facility] [address] [id number] Social History Tobacco Use Types Packs/Day Years [...] Name Priority Date/Time Associated Diagnosis Comme nts COVID-19 TEST [facility] Today 06/28/2020 9:31 EST LAB PCR COVID-19 TESTING Routine 06/28/2020 9:31 EST Resu lts for this procedure are i n the results section. documented in this encounter Results COVID-19 TEST [facility] LAB PCR (06/28/2020 9:31 EST) Specimen Swab - Entire nasopharynx (body structur e) Performing Organization Address City/State/ZIP Code Phon e Number [facility] [address] [place] [address] SERVICES COVID-19 TESTING (06/28/2020 9:31 EST) COVID-19 rt-PCR Negative Negative [facility] Result Comment: [facility] This test has not been FDA c leared or approved. This test has been authorized by FDA under an EUA for use by authorized laboratories. This test has been authorized only for detection of nucleic acid fro SERVICES m 2019-nCoV, not for any oth er viruses or pathogens. This test is only authorized for the duration of the declaration that circumstances exist justifying the authorization of emergency use of in vitro d iagnostic tests for detectio n and/or diagnosis of 2019-nCoV under section 564(b)(1) of Act, 21 U.S.C ?? 360bbb-3(b) (1), unless the authorization is terminated or revoked sooner. Negative results do not prec lude 2019-nCoV infection and should not be used as the sole basis for treatment or other patient management decisions. Negative results must be combined with clinical observa tions, patient history, and epidemiological informatio n. Performed on the [employer] Fusion instrument Performing Lab [place] [facility] Lab [facility] SERVICES Specimen Swab Performing Organization Address City/State/ZIP Code Phon e Number [facility] [address] [place] [address] SERVICES documented in this encounter Visit Diagnoses Not on filedocumented in this encounter Care Teams Dye Worker Relationship Specialty Start Date End Date Elieser Bush DO PCP - General 03/08/19 [address] [facility] [address] documented as of this encounter
--- OUTSIDE RECORDS SUMMARY | 2022-02-02 00:35 | XMS_ITS | Encounter Summary ---
:1960 Author Organization [facility] [place] [address] Care Team Providers Name Role Phone Elieser Bush DO Primary Care Provider Reason for Visit Reason Comments Establish Care L ring finger flexor tendon repair WC DOI: 03/06/19 DOS: 04/2019 - 2nd opinion Consultation (Routine) - Closed Specialty Diagnoses / Procedures Referred By Contact Refer red To Contact Orthopaedics Diagnoses S/P FLEXOR TENDON REPAIR OF HIS LEFT RING FINGER W/C Jaswant Rosen MD Warhold, Lance G, MD Procedures 2ND OPINION W/C [address] [facility] [address] [place] [address] [address] [place] [address] Phone: Fax: Referral ID Status Reason Start Date Expiration Date Visits V isits Requested Authorized [id number] Closed Consult, Test 07/15/2019 07/14/2020 [facility] PCP Updated and/or Approved Encounter Details Date Type Department Care Team Description 08/18/2019 Office Visit Orthopaedics at [facility] Praveen Gonzalez, Finger stiffness, [facility] [place] [address] [facility] [phone] [facility] SURGERY [place], [place] [address] Social History Tobacco Use Types [...] Mass Index 33.45 08/18/2019 9:47 AM EST documented in this encounter Progress Notes Lenny Saha PA - 08/18/2019 9:30 AM EST PATIENT NAME: Choco Enriquez AGE: 58 y.o. MR#: [id number] DATE OF VISIT: 08/18/2019 DATE OF INJURY/ONSET: 03/06/2019 STAFF: Dr. Gonzalez CHIEF COMPLAINT: Left ring finger stiffness HISTORY OF PRESENT ILLNESS: Mr. Enriquez is a right hand dominant 58 y.o. male who comes into clinic today for evaluation of his left ring finger. This is related to an injury that occurred at work on 03/06/19 in which a piece of steel landed directly on his left hand. This resulted in fractures to his left long, ring and small fingers as well as a tendon rupture to his FDP of his left ring finger. He underwent surgical repair of the tendon by Dr. Rosen on 03/28/2019 and has had continued difficulty with finger stiffness. The patient has been compliant with attending therapy up to 3 times per week but has been unable to return to his job as they require him to be able to make a full fist. He was sent to us for a second opinion to see if there is any other treatment options available for him other than continued therapy. He is not have any numbness or tingling in any of his digits. Medications and Allergies were reviewed in [facility] PAST MEDICAL HX: History reviewed. No pertinent past medical history. PAST SURGICAL HX: History reviewed. No pertinent surgical history. SOCIAL HX: Social History Occupational History ??? Not on file Tobacco Use ??? Smoking status: Current Some Day Smoker ??? Smokeless tobacco: Current User Types: Chew ??? Tobacco comment: occasional Substance and Sexual Activity ??? Alcohol use: Yes Comment: 12-14 per week ??? Drug use: Not Currently ??? Sexual activity: Not on file ROS: Pertinent items are noted in HPI. General Health, Prior Treatments, PreExisting Condition, Health Habits, About You 08/18/2019 PROMIS-10 General Health Fair PROMIS-10 Quality of Life Good PROMIS-10 Physical Health Fair PROMIS-10 Mental Health Good PROMIS-10 Social Activity Good PROMIS-10 Everyday Activities Mostly PROMIS-10 Pain 6 PROMIS-10 Fatigue Mild PROMIS-10 Social Roles Very Good PROMIS-10 Anxious or Depressed Never PROMIS PHYSICAL SCORE (range 16-68) 42.3 PROMIS MENTAL SCORE (range 21-68) 48.3 Treatments Tried Orthotics Alzheimers or dementia No Cirrohosis or liver disease No HIV/AIDS No Back or neck pain No Heart attack No Heart failure No Unclog/bypass leg arteries No Stroke, blood clot, TIA No Asthma No Emphysema, chronic bronchities, or COPD No Stomach ulcers/peptic ulcer disease No Diabetes No Poor kidney function No Rheumatic condtions No Cancer No Weight (lbs) 220 Height (feet) 5 feet Height (Inches) 8 BMI 33.44 (Obese) Ever used tobacco products Yes Tobacco frequency Weekly WHO - Tobacco Advice 4 (You are at risk of health and other problems from your current pattern of tobacco use.) Ever used alcoholic beverages Yes Alcohol frequency Weekly WHO - Alcohol Advice 4 (You are at risk of health and other problems from your current pattern of alcohol use.) Live Alone Yes Marital situation / Combined Household Income $15,000 to less than $20,000 # People Supported 2 Race White Health Literacy Quite a bit Not working because: Not working due to disability PHYSICAL EXAM: Mr. Enriquez is a 58 y.o. male who is alert, appears stated age and cooperative. Inspection: Previous surgical incision appears to be well-healed without evidence of infection. There is no obvious swelling or erythema present. Palpation: He has no significant tenderness to palpation specifically over his left small, ring and long fingers. ROM/Strength: Patient is able to flex and extend all digits. The FDP repair appears to be intact although he does have stiffness with terminal flexion. Left ring finger: 60 degrees of flexion at the MCP 70 degrees of flexion at the PIP 15 degrees flexion at the DIP 5mm from small finger to palm 1.6mm from ring finger to palm Neurovascular: Sensation and motor function are in tact along the median, radial and ulnar nerves. His hand is well perfused, distal radial pulse 2+. DIAGNOSTIC STUDIES: X-rays from today were personally reviewed with the patient and demonstrate satisfactory alignment of the fractures to his left fifth metacarpal head, small finger proximal phalanx as well as fractures to his ring and long fingers. 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 ASSESSMENT: Mr. Enriquez presents for a second opinion regarding a zone 2 FDP repair to his left ring finger related to an injury that occurred at work. One exam his FDP appears to be intact although he lacks full flexion at his DIP of his left ring finger. He is not having any significant pain at this time and his sensation is intact. We recommend he continue with occupational therapy working on rangeof motion and strengthening. He is able to return to work on light duty as per stated by Dr. Rosen previously. We did address the option of doing a tenolysis, however the outcome of this would be somewhat unpredictable. We will have him follow-up with Dr. Rosen for future visits and there is no change in his plan going forward. This was stated on his Worker's Comp. paperwork from today's visit. PLAN: He will return for follow up on an as needed basis. The patient understands to contact us if they have any other questions or concerns. I saw Mr. Enriquez with Dr. Gonzalez who agrees with this plan. The above documentation was completed using [employer] voice recognition software. Praveen Gonzalez MD - 08/18/2019 9:30 AM EST I examined Choco Enriquez and I agree with Lenny Saha's note. 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 His FDP tendon repair is clinically intact, but he is unable to fully flex his digits. It is not clear that surgery will reliably improve this, although tenolysis could be considered after he gets through 6-9 months of hand therapy if his function is not adequate. documented in this encounter Plan of Treatment Not on filedocumented as of this encounter Visit Diagnoses Diagnosis Finger stiffness, left documented in this encounter Care Teams Online Marketing Coordinator Relationship Specialty Start Date End Date Elieser Bush DO PCP - General Family Medicine 07/15/[address] [place] [address] documented as of this encounter
--- NOTE | 2022-02-02 07:00 | DI.CTLCSR_ITS ---
Exam(s) CT CHEST LUNG CANCER SCREEN EXAM: CT CHEST LUNG CANCER SCREEN CLINICAL HISTORY: Screening for lung cancer, CURRENT SMOKER, F17.210. TECHNIQUE: Imaging Protocol: Low Dose Technique CONTRAST MATERIAL: None COMPARISON: No exams were available for comparison FINDINGS: CHEST: LUNGS: There are no ominous pulmonary nodules. There are no confluent infiltrates. No pleural effusi ons. MEDIASTINUM: There is no obvious hilar nor mediastinal adenopathy. CARDIAC: Heart size is normal. There is no pericardial effusion.Caliber of the thoracic aorta is wit hin normal limits. OTHER: OSSEOUS: Multiple healed posterior right rib fractures. No acute fractures. No lytic osseous lesion s.. IMPRESSION: 1. No significant pulmonary nodules. 2. No pleural effusions nor intrathoracic adenopathy. 3. Lung RADS Cat 1 - Negative: No nodules and definitely benign nodules Lung-RADS 1.0 CATEGORIES: Category 0 - Prior chest CT exam(s) being located for comparison. Category 1 - Annual screening in 12 months. No nodules or definitely benign nodules. Category 2 - Annual screening in 12 months. Benign appearance. Nodules with low likelihood of becomin g active cancer. Category 3 - 6-month follow-up. Probably benign. Short-term follow-up suggested. Nodules with low lik elihood of becoming active cancer. Category 4A - 3-month follow-up and CT/PET if >8 mm in size. Suspicious finding. Findings which requi re additional testing. Category 4B - Findings which require additional testing and tissue sampling. Category 4X - Category 3 or 4 nodules with additional features or imaging findings that increases the suspicion of malignancy. Modifier S- Potentially clinically significant findings (non lung cancer) RADIATION DOSE DELIVERED: 78.54mGy.cm Total DLP 1.84mGy CTDIvol DATA REPOSITORY: All CT scans at this facility are submitted to the National Radiology Data Registry (NRDR) Dose Index Registry (DIR) with the [employer] (A[employer]). RADIATION OPTIMIZATION: All CT scans at this facility use at least one of these dose optimization te chniques: automated exposure control; mA and/or kV adjustment per patient size (includes targeted exa ms where dose is matched to clinical indication); or iterative reconstruction.
[2022-02-02] MEDS: Albuterol HFA 18 GM 200 PUFF INH IH (09:14)
[2022-02-02] MEDS: Inhaler, Assist Device 1 EACH MC (09:15)
--- NOTE | 2022-02-03 14:57 | W.PFT ---
Date of service: 02/02/22 Time of Service: 08:05 Pulmonary Function Test Result Requesting Provider Jesus Floyd Indications: productive cough Interpretation Spirometry: There is moderate airflow limitation.There is no significant bronchodilator response. Impression Moderate airflow obstruction. Clinical Correlation therefore is recommended.
== END 2022-02-02 01:49 | disposition home or self-care (01) ==
LOC: RT 01:48
PROVIDERS: PCP Nurse Practitioner Family; Visit Provider Family Medicine
DX: F17.210 Nicotine dependence, cigarettes, uncomplicated (principal); Z12.2 Encounter for screening for malignant neoplasm of respiratory organs; R06.2 Wheezing; R05.8 Other specified cough
CPT/HCPCS: 71271; 94060